=== PATIENT | female | born 1935 | race African-American/Black ===

== ENCOUNTER → 2017-02-13 | Outpatient (CLI) | payer MEDICARE, BC ==
[~2017-02-13] MED LIST: 'TENORMIN50 MG PO; AMBIEN10 M1 PO; APRESOLINE50 MG PO; ARICEPT5 M1 PO; ASPIRIN325 MG PO; ATENOLOL25 MG PO; ATENOLOL50 M1 PO; ATENOLOL50 MG PO; ATIVAN1 MG PO; BACTRIM 400 MG-1 TAB PO; BACTRIM DS 8001 TAB PO; CARAFATE1 GM PO; CIPRO250 MG PO; CIPRO500 MG PO; CITALOPRAM20 MG PO; CLARITIN10 MG PO; CLONIDINE0.1 MG PO; COLACE100 MG PO; COREG6.25 MG PO; COUMADIN5 M1 PO; EFFER-K20 MEQ PO; GLUCOTROL10 MG PO; HEPARIN5000 UNIT/ IV; HYDR25T PO; HYDRALAZINE HC100 MG PO; HYDRALAZINE HYD50 MG PO; HYDRALAZINE100 MG PO; HYDRALAZINE50 MG PO; HYDROCHLOROTH12.5 MG PO; HYDROCHLOROTHIA25 MG PO; KEFLEX500 MG PO; LANTUS SOLOS100 U/M1 SC; LIPITOR20 MG PO; LIPITOR80 MG PO; LOTENSIN40 MG PO; MAGNESIUM OXID400 MG PO; MAPAP325 MG PO; MEDROL DOSEPAK4 MG PO; METFORMIN500 MG PO; METHIMAZOLE10 MG PO; METOPROLOL SR50 MG PO; MICRO K10 MEQ PO; MOM30 ML PO; Micro K10 MEQ PO; NAMENDA10 MG PO; NORCO 325 MG-51 TAB PO; NORVASC10 MG PO; NORVASC5 MG PO; OSCAL/D,OYSTER250 MG PO; PRAD75 PO; PRADAXA150 MG PO; SIMVASTATIN40 MG PO; TENORMIN25 M1 PO; TENORMIN25 MG PO; TRAMADOL50 MG PO; TRAZODO50 MG PO; TRAZODONE50 MG PO; TYLENOL325 M2 PO; TYLENOL650 M1 PO; ULTRAM50 MG PO; VITAMIN D22000 UNIT PO; VITAMIN D33000 UNIT PO; VITAMIN D5000 I2 PO; VITAMIN D50000 I2 PO; ZESTRIL,PRINIVI20 MG PO
== END | disposition home or self-care (01) ==
LOC: US 13:00
DX: E04.2 Nontoxic multinodular goiter (principal)

== ENCOUNTER 2017-03-05 17:29 | Emergency (ER) | payer MEDICARE, BC ==
[~2017-03-05] VITALS: Ht 162.5 cm; Wt 65.8 kg
[2017-03-05 18:19] VITALS: BP 160/85
[2017-03-05 19:08] LABS: BILIRUBIN NEGATIVE (NEGATIVE); BLOOD NEGATIVE (NEGATIVE); CLARITY SL CLOUDY (CLEAR); COLOR YELLOW (YELLOW); GLUCOSE TRACE (NEGATIVE); KETONE NEGATIVE (NEGATIVE); LEUKO ESTERASE 1+ (NEGATIVE); NITRITE NEGATIVE (NEGATIVE); PH 5.5 (5.0-9.0); SPECIFIC GRAVITY 1.025 (1.005-1.030); UROBILINOGEN 0.2 E.U./dl (0.2-1.0)
[2017-03-05 19:15] LABS: BACTERIA 1+
[2017-03-05] MEDS ORDERED: MACROBID100 M1 PO (19:21)
== END 2017-03-05 19:28 | disposition home or self-care (01) ==
LOC: ED 17:29
PROVIDERS: Nurse Practitioner Family
DX: N39.0 Urinary tract infection, site not specified (principal); H92.03 Otalgia, bilateral; R07.9 Chest pain, unspecified; R53.1 Weakness; I48.91 Unspecified atrial fibrillation; F03.90 Unspecified dementia, unspecified severity, without behavioral disturbance, psychotic disturbance, mood disturbance, and anxiety; Z88.0 Allergy status to penicillin; Z88.8 Allergy status to other drugs, medicaments and biological substances; Z88.6 Allergy status to analgesic agent; Z79.899 Other long term (current) drug therapy

== ENCOUNTER 2017-10-22 16:02 | Emergency (ER) | payer MEDICARE, BC ==
[~2017-10-22] VITALS: Ht 162.5 cm; Wt 61.2 kg
[~2017-10-22 16:02] MED LIST changes: +MACROBID100 M1 PO
[2017-10-22 16:16] VITALS: BP 134/68
[2017-10-22 17:04] LABS: BASO % 0.5 % (0.0-1.0); HEMATOCRIT 41.8 % (37.0-47.0); HEMOGLOBIN 13.6 g/dl (12.0-16.0); LYMPH # 1.1 10*3/uL (1.3-4.4); LYMPH % 27.3 % (27.0-41.0); MEAN CELL VOLUME 99.5 fl (81.0-99.0); MEAN CORPUSCULAR HGB 32.4 pg (27.0-31.0); MEAN CORPUSCULAR HGB CONC 32.5 g/dl (33.0-37.0); MEAN PLATELET VOLUME 11.2 fl (9.6-12.3); MONO # 0.4 10*3/uL (0.1-1.0); MONO % 9.8 % (3.0-9.0); NEUT # 2.5 10*3/uL (2.3-7.9); NEUT % 61.2 % (47.0-73.0); PLATELET COUNT AUTOMATED 162 10*3/uL (130-400); RED CELL DISTRI WIDTH 13.9 % (0-14.5); WHITE BLOOD COUNT 4.1 10*3/uL (4.8-10.8)
[2017-10-22 17:13] LABS: INTERNATIONAL NORM RATIO 1.2 (2.0-3.5)
[2017-10-22 17:22] LABS: ALBUMIN 3.3 gm/dl (3.1-4.5); ALKALINE PHOSPHATASE 61 U/L (45-117); BUN 20 mg/dl (7-24); CHLORIDE 107 mmol/L (98-107); CREATININE 0.97 mg/dL (0.55-1.02); POTASSIUM 3.5 mmol/L (3.5-5.1); SGOT/AST 15 IU/L (3-35); SGPT/ALT 16 U/L (12-78); SODIUM 144 mmol/L (136-145); TOTAL PROTEIN 6.8 gm/dL (6.4-8.2)
[2017-10-22 17:24] LABS: TROPONIN I < 0.015 ng/ml (<0.045)
[2017-10-22 18:15] LABS: BILIRUBIN NEGATIVE (NEGATIVE); BLOOD NEGATIVE (NEGATIVE); CLARITY CLEAR (CLEAR); COLOR YELLOW (YELLOW); GLUCOSE NEGATIVE (NEGATIVE); KETONE NEGATIVE (NEGATIVE); LEUKO ESTERASE NEGATIVE (NEGATIVE); NITRITE NEGATIVE (NEGATIVE); PH 6.5 (5.0-9.0); SPECIFIC GRAVITY 1.015 (1.005-1.030)
[2017-10-22 18:30] LABS: BACTERIA TRACE; EPITHELIAL CELLS 40-45; WBC 0-2 wbc/hpf (0-5)
== END 2017-10-22 19:01 | disposition home or self-care (01) ==
LOC: ED 16:02
PROVIDERS: Physician Assistant
DX: E86.0 Dehydration (principal); F03.90 Unspecified dementia, unspecified severity, without behavioral disturbance, psychotic disturbance, mood disturbance, and anxiety; Z98.51 Tubal ligation status; Z90.710 Acquired absence of both cervix and uterus; Z90.49 Acquired absence of other specified parts of digestive tract; Z79.899 Other long term (current) drug therapy; Z88.6 Allergy status to analgesic agent; Z88.0 Allergy status to penicillin; Z88.8 Allergy status to other drugs, medicaments and biological substances

== ENCOUNTER 2017-12-13 12:48 | Inpatient (IN) | payer MEDICARE, BC ==
[~2017-12-13] VITALS: Ht 170.1 cm; Wt 57.3 kg
--- NOTE | ~2017-12-13 | CON ---
[place], [place] REPORT OF CONSULTATION NAME: MARIYA HEATH UNIT #: [id number] ROOM: 409 DOCTOR: MANISH IRWIN MD BIRTHDATE: [birth year] DOS: 12/15/2017 PSYCHIATRIC CONSULT CHIEF COMPLAINT: "I want to go home." HISTORY OF PRESENT ILLNESS: This is an 82-year-old black female who was admitted due to use a syncopal episode. From a psychiatric standpoint, the patient has had dementia for some time. Her daughter, who was present, gave a lot of the history stating that her mom generally does well at home, but will have periods of time when she becomes sleep deprived and then will become increasingly agitated and more labile during the day. These are few and far between. She does note that her mom needs a lot of assistance with ADL maintenance and is very confused and needs to be redirected from time to time, but generally does well at home. She has had poor reactions to previous cholinesterase inhibitors and Namenda, stating that at times they do make her more agitated, but she is willing to try Exelon at this point. She also states that her mom has tried multiple antidepressants and they too have not been beneficial or have caused increased side effects. She does believe that her mom can successfully return home with her son and his girlfriend, stating that they do watch her very closely. PAST MEDICAL HISTORY: Remarkable for degenerative joint disease, atrial fibrillation, leukopenia, frequent falls, CVA, hyperlipidemia, hypertension, hypothyroidism, protein calorie malnutrition, polio, diabetes, vitamin D and vitamin B12 deficiency. SOCIAL HISTORY: The patient does not drink alcohol, use illicit drugs or smoke cigarettes. MENTAL STATUS: The patient is alert and oriented to self, select others and place, not time. Mood does seem to be fairly euthymic. She is relatively bright and engaging. She does speak with slurred words and is somewhat garbled, but understandable. There is no hypomania, aren or psychosis noted. Short-term memory definitely has gaps, otherwise she is intact. DIAGNOSIS: Alzheimer dementia. PLAN: I will go ahead and discontinue her Aricept in lieu of Exelon patch 4.6 mg a day. At this point, the patient can have followup as an outpatient once she is medically stable. [place], [place] REPORT OF CONSULTATION NAME: MARIYA HEATH UNIT #: [id number] ROOM: 409 DOCTOR: MANISH IRWIN MD BIRTHDATE: [birth year] MANISH IRWIN MD CM:CONSTR:REPORT OF CONSULTATION 0903 12/16/17 0025 interface
[~2017-12-13 12:48] MED LIST changes: +GLUCOPHAGE500 M1 PO; -METFORMIN500 MG PO
[2017-12-13 12:50] VITALS: BP 116/93
[2017-12-13 13:21] LABS: BASO % 0.5 % (0.0-1.0); EOS % 0.3 % (1.0-4.0); HEMATOCRIT 44.5 % (37.0-47.0); HEMOGLOBIN 14.4 g/dl (12.0-16.0); LYMPH % 26.3 % (27.0-41.0); MEAN CELL VOLUME 98.9 fl (81.0-99.0); MEAN CORPUSCULAR HGB CONC 32.4 g/dl (33.0-37.0); MEAN PLATELET VOLUME 11.1 fl (9.6-12.3); MONO # 0.4 10*3/uL (0.1-1.0); MONO % 9.5 % (3.0-9.0); NEUT # 2.4 10*3/uL (2.3-7.9); NEUT % 63.1 % (47.0-73.0); PLATELET COUNT AUTOMATED 174 10*3/uL (130-400); RED CELL DISTRI WIDTH 13.8 % (0-14.5); WHITE BLOOD COUNT 3.8 10*3/uL (4.8-10.8)
[2017-12-13 13:31] LABS: ACT PARTIAL THROMBO TIME 37.6 SECONDS (20.8-31.5); INTERNATIONAL NORM RATIO 1.2 (2.0-3.5)
[2017-12-13 13:38] LABS: ALBUMIN 3.5 gm/dl (3.1-4.5); ALKALINE PHOSPHATASE 68 U/L (45-117); BUN 19 mg/dl (7-24); CHLORIDE 108 mmol/L (98-107); CREATININE 0.95 mg/dL (0.55-1.02); POTASSIUM 4.1 mmol/L (3.5-5.1); SGOT/AST 18 IU/L (3-35); SGPT/ALT 16 U/L (12-78); SODIUM 145 mmol/L (136-145); TOTAL PROTEIN 7.4 gm/dL (6.4-8.2)
[2017-12-13 13:39] LABS: TROPONIN I < 0.015 ng/ml (<0.045)
[2017-12-13 14:23] VITALS: BP 140/74
[2017-12-13 14:50] VITALS: BP 155/77
[2017-12-13] MEDS ORDERED: LOPRESSOR25 MG PO (14:53)
[2017-12-13] MEDS ORDERED: VITAMIN D35000 UNIT PO (14:55)
[2017-12-13 16:00] VITALS: BP 154/77
[2017-12-13 17:35] LABS: BILIRUBIN NEGATIVE (NEGATIVE); BLOOD NEGATIVE (NEGATIVE); CLARITY CLEAR (CLEAR); COLOR YELLOW (YELLOW); GLUCOSE NEGATIVE (NEGATIVE); KETONE NEGATIVE (NEGATIVE); LEUKO ESTERASE NEGATIVE (NEGATIVE); NITRITE NEGATIVE (NEGATIVE); PH 7.5 (5.0-9.0)
[2017-12-13 17:47] LABS: WBC 0-2 wbc/hpf (0-5)
[2017-12-13 20:00] VITALS: BP 150/90
[2017-12-14] VITALS: BP 163/87
[2017-12-14 06:33] LABS: BASO % 0.5 % (0.0-1.0); HEMATOCRIT 41.9 % (37.0-47.0); HEMOGLOBIN 13.5 g/dl (12.0-16.0); LYMPH # 1.2 10*3/uL (1.3-4.4); LYMPH % 29.3 % (27.0-41.0); MEAN CELL VOLUME 99.1 fl (81.0-99.0); MEAN CORPUSCULAR HGB 31.9 pg (27.0-31.0); MEAN CORPUSCULAR HGB CONC 32.2 g/dl (33.0-37.0); MONO # 0.5 10*3/uL (0.1-1.0); MONO % 12.8 % (3.0-9.0); NEUT # 2.3 10*3/uL (2.3-7.9); NEUT % 56.4 % (47.0-73.0); PLATELET COUNT AUTOMATED 149 10*3/uL (130-400); RED BLOOD COUNT 4.23 10*6/uL (4.10-5.10); RED CELL DISTRI WIDTH 13.7 % (0-14.5)
[2017-12-14 06:50] LABS: ALBUMIN 3.3 gm/dl (3.1-4.5); CHLORIDE 107 mmol/L (98-107); POTASSIUM 3.6 mmol/L (3.5-5.1); SODIUM 143 mmol/L (136-145)
[2017-12-14 06:58] LABS: ALKALINE PHOSPHATASE 63 U/L (45-117); BUN 14 mg/dl (7-24); CHOLESTEROL 127 mg/dL (<200); CREATININE 0.66 mg/dL (0.55-1.02); FREE T4 1.46 ng/dl (0.76-1.46); HDL CHOLESTEROL 49 mg/dl (40-60); LDL CHOLESTEROL 63 mg/dL (9-159); SGOT/AST 20 IU/L (3-35); SGPT/ALT 14 U/L (12-78); TOTAL PROTEIN 6.7 gm/dL (6.4-8.2); TRIGLYCERIDES 73 mg/dl (<150); VLDL CHOLESTEROL 15 mg/dL (6-40)
[2017-12-14 07:00] LABS: ACT PARTIAL THROMBO TIME 42.9 SECONDS (20.8-31.5); INTERNATIONAL NORM RATIO 1.4 (2.0-3.5)
[2017-12-14 08:00] VITALS: BP 177/78
[2017-12-14 09:32] LABS: VITAMIN D, 25-HYDROXY 85.3 ng/mL (30-100)
[2017-12-14 12:00] VITALS: BP 149/85
[2017-12-14 16:00] VITALS: BP 152/82
[2017-12-14 20:00] VITALS: BP 160/89
[2017-12-15 00:20] VITALS: BP 175/82
[2017-12-15 08:00] VITALS: BP 170/78
[2017-12-15 12:00] VITALS: BP 143/96
[2017-12-15] MEDS ORDERED: RIVASTIGMINE1 EACH T (13:31)
== END 2017-12-15 14:42 | disposition home or self-care (01) | DRG 312 ==
LOC: ED 12:48 → 4E 14:20 → EDHOLD 14:20 → 4E 14:21
PROVIDERS: Emergency Medicine; Family Medicine
DX: R55 Syncope and collapse (principal); E44.0 Moderate protein-calorie malnutrition; E11.65 Type 2 diabetes mellitus with hyperglycemia; E05.90 Thyrotoxicosis, unspecified without thyrotoxic crisis or storm; I48.2 Chronic atrial fibrillation; D72.810 Lymphocytopenia; E04.1 Nontoxic single thyroid nodule; E53.8 Deficiency of other specified B group vitamins; S00.03XA Contusion of scalp, initial encounter; Z68.1 Body mass index [BMI] 19.9 or less, adult; E78.5 Hyperlipidemia, unspecified; E86.0 Dehydration; M43.10 Spondylolisthesis, site unspecified; R26.81 Unsteadiness on feet; W18.39XA Other fall on same level, initial encounter; J30.2 Other seasonal allergic rhinitis; I11.9 Hypertensive heart disease without heart failure; E55.9 Vitamin D deficiency, unspecified; G30.9 Alzheimer's disease, unspecified; F02.80 Dementia in other diseases classified elsewhere, unspecified severity, without behavioral disturbance, psychotic disturbance, mood disturbance, and anxiety; R29.6 Repeated falls; Z79.01 Long term (current) use of anticoagulants; Z88.0 Allergy status to penicillin; Z88.8 Allergy status to other drugs, medicaments and biological substances; Z79.899 Other long term (current) drug therapy; Z86.73 Personal history of transient ischemic attack (TIA), and cerebral infarction without residual deficits; Z87.440 Personal history of urinary (tract) infections; Z90.710 Acquired absence of both cervix and uterus; Z90.49 Acquired absence of other specified parts of digestive tract; Z98.51 Tubal ligation status; Z83.3 Family history of diabetes mellitus; Z82.3 Family history of stroke; Z82.49 Family history of ischemic heart disease and other diseases of the circulatory system; Z98.61 Coronary angioplasty status; Y93.89 Activity, other specified; Y92.89 Other specified places as the place of occurrence of the external cause; Y99.8 Other external cause status; Z86.12 Personal history of poliomyelitis

== ENCOUNTER → 2017-12-28 | Outpatient (CLI) | payer MEDICARE, BC ==
[~2017-12-28] MED LIST changes: +LOPRESSOR25 MG PO; +RIVASTIGMINE1 EACH T; +VITAMIN D35000 UNIT PO
== END | disposition home or self-care (01) ==
LOC: MAMMO 09:30
DX: N64.59 Other signs and symptoms in breast (principal)

== ENCOUNTER 2018-01-11 11:09 | Inpatient (IN) | payer MEDICARE, BC ==
[~2018-01-11] VITALS: Ht 175.3 cm; Wt 61.9 kg
--- NOTE | ~2018-01-11 | PR ---
[place], [place] PROGRESS NOTE [id number] #: [id number] ROOM: 420 DOCTOR: DANIA WILL MD BIRTHDATE: [birth year] DOS: SUBJECTIVE: The patient has been admitted to hospital for possible placement into the [facility]. She also had inverted nipple, and has been seen by Dr. Fischer. She is also waiting for placement into the fci. LABORATORY DATA: Her CBC showed white count 3600, hemoglobin 15.2, hematocrit 46.9. Comprehensive metabolic showed glucose 143. Other values are normal. IMAGING: Chest x-ray is normal. OBJECTIVE: VITAL SIGNS: Blood pressure 139/83, pulse 88, respirations 18, temperature 97.5. HEART: Regular. ABDOMEN: Soft. DANIA WILL MD CM:PNTRANS [id number] DANIA WILL MD 01/14/18 0319 interface
--- NOTE | ~2018-01-11 | CON ---
[place], [place] REPORT OF CONSULTATION NAME: MARIYA HEATH UNIT #: [id number] ROOM: 420 DOCTOR: MANISH IRWIN MD BIRTHDATE: [birth year] DOS: 01/16/2018 PSYCHIATRIC CONSULT CHIEF COMPLAINT: "I don't know when do I get to go home." HISTORY OF PRESENT ILLNESS: This is an 82-year-old black female known to me from a previous admission to the medical floor here at [facility]. She was brought in to the Emergency Room via private vehicle by her daughter for both a change in mental status as well as an inverted right nipple. The patient was to have a mammogram and evaluate for the possibility of breast cancer. When the daughter did come to the patient's home, the patient was covered in urine and was rather foul smelling. The patient has not been eating or drinking like she normally does per the daughter. The patient was admitted to rule out any organic factors, to stabilize on medication, and then to determine the least restrictive environment to which she can return. ALLERGIES: The patient lists allergies to NUBAIN, PENICILLIN, XANAX, NAMENDA, AMBIEN, AND ATIVAN. PAST MEDICAL HISTORY: Remarkable for AFib, cardiomegaly, dementia, CVA, hyperlipidemia, hypertension, hyperthyroidism, vitamin D deficiency, vitamin B12 deficiency, diabetes, and a thyroid nodule. SOCIAL HISTORY: The patient does not drink alcohol, use illicit drugs or smoke tobacco. MENTAL STATUS: She is alert and oriented to person, place, not time. Mood does seem to be fairly euthymic. She is somewhat anxious about going home. There is no hypomania or aren present. There were no overt auditory or visual hallucinations. No delusions, no paranoia. Short term memory is poor and she has significant gaps and she processes slowly. She lacks spontaneity. DIAGNOSIS: Alzheimer dementia. PLAN: I see no criteria for a U admission. At this point in time, the patient can be placed from the medical floor directly to a long-term care facility. [place], [place] REPORT OF CONSULTATION NAME: MARIYA HEATH UNIT #: [id number] ROOM: 420 DOCTOR: MANISH IRWIN MD BIRTHDATE: [birth year] MANISH IRWIN MD CM:CONSTR:REPORT OF CONSULTATION 1026 01/17/18 0009 interface
--- NOTE | ~2018-01-11 | PR ---
[place], [place] PROGRESS NOTE NAME: MARIYA HEATH UNIT #: [id number] ROOM: 420 DOCTOR: HAI FREDERICK MD BIRTHDATE: [birth year] DOS: 01/12/2018 SUBJECTIVE: The patient is an 82-year-old female admitted yesterday for possible placement and also inverted right nipple. The patient was seen by Dr. Fischer. Ultrasound of the breast was ordered yesterday and the report is pending. Dr. Suarez was also consulted for underlying dementia. Her Aricept was increased to 10 mg. Today, the patient was seen at around 12:40 p.m. She is sitting comfortably in the chair. No acute distress. Cyanide Pot Hardener consulted for placement. The reason for the placement is that both daughters are unable to take care of their mother at home. OBJECTIVE: VITAL SIGNS: Blood pressure 169/77, pulse is 84, respiratory rate 18, temperature 97.9. CHEST: Clinically clear to auscultation bilaterally. HEART: S1, S2, regular rate and no murmur, gallop or rub. ABDOMEN: Soft, nontender. EXTREMITIES: No edema. NEUROLOGIC: The patient is alert, but possibly not oriented. Consult report of Dr. Fischer was reviewed as well. He is waiting for ultrasound. LABORATORY DATA: From yesterday were reviewed, though it was thought that patient is dehydrated, but her BUN is 16, creatinine 0.81. Her chest x-ray was done, which showed no acute cardiopulmonary disease. WBC count was 3.6, MCV was 100, MCHC 32.4, glucose was 143. Rest of the labs are normal. ASSESSMENT: At this time: 1. Advanced dementia. Dr. Suarez consulted. 2. Inverted right nipple. Dr. Fischer consulted. 3. Hyperglycemia. 4. Macrocytosis. 5. Unable to take care of her daily activities of living. PLAN OF CARE: 1. Possible care home placement. 2. We will continue to follow up with consultants. 3. Dr. Burgos to see the patient on the weekend. [place], [place] PROGRESS NOTE NAME: MARIYA HEATH UNIT #: [id number] ROOM: 420 DOCTOR: HAI FREDERICK MD BIRTHDATE: [birth year] HAI FREDERICK MD CM:DOUG [phone] HAI FREDERICK MD 01/13/18 0239 interface
--- NOTE | ~2018-01-11 | WRIGHTHP ---
[place], [place] PATIENT HISTORY AND PHYSICAL EXAM NAME: MARIYA HEATH [facility] #: [id number] UNIT #: [id number] ROOM: 420 DOCTOR: HAI FREDERICK MD BIRTHDATE: [birth year] DOS: 01/11/2018 An 82 years old female. CHIEF COMPLAINT: Dehydration, advanced dementia and inverted right breast. HISTORY OF PRESENT ILLNESS: This is an 82-year-old female who was feeling tired and has been tired and weak and not eating and drinking very much, as per the daughter. The patient had strong odor of the urine. The daughter found the patient to be admitted to the assisted on a long-term basis. The patient does have advanced dementia. She is on Aricept 5 mg and as per the daughter, this is not effective. I changed it to 10 mg and I also consulted Dr. Suarez. Dr. Fischer was consulted to get ultrasound of the right breast. I did talk to Dr. Fischer and he will see the patient in the morning. Other than that, the patient is lying comfortably in the bed. She is not in any acute distress. The patient was discussed earlier with Dr. Nieto (ER physician). PAST MEDICAL HISTORY: 1. Alzheimer dementia. 2. Left MCA ischemic stroke. Her speech, reading and writing all skills are affected. 3. Peripheral vascular disease. She had arterial thrombus, status post vascular bypass surgery, left leg, at [facility]. 4. Atrial fibrillation. She is on Pradaxa 150 mg b.i.d. 5. Hypertension. 6. Coronary artery disease status post stent in the coronary artery. 7. She has polio with right cavovarus deformity. 8. Graves disease. She is on methimazole. 9. Vitamin D deficiency and diabetes mellitus type 2. PAST SURGICAL HISTORY: Leg surgery and stent in the coronary. FAMILY HISTORY: She has had seven brothers, four sisters, four sons, two daughters. Brothers and sisters are . Sons and daughters are healthy, otherwise noncontributory. SOCIAL HISTORY: Nonsmoker, nonalcoholic, no illicit drug use. ALLERGIES: PENICILLIN G BENZATHINE. REVIEW OF SYSTEMS: The patient is not in acute distress. A 10-point review of system is negative. The patient denies any dizziness. No double vision. No ear, nose and throat discharge. She does have weakness and no cough, no phlegm, no chest pain. No diarrhea or constipation. No heartburn, no easy bruising, no blood in the urine. She does have strong urine as per the daughter. No muscle pain. Skin is normal. Neurologically, she responds, but is not very aware of the time. She does have difficulty in sleeping. MEDICATIONS: She is on methimazole 5 mg daily, Pradaxa 150 mg twice a day. Then, vitamin D 5000 units daily, Os-Ziyad plus vitamin D 5-100 one tablet by [place], [place] PATIENT HISTORY AND PHYSICAL EXAM NAME: MARIYA HEATH UNIT #: [id number] ROOM: 420 DOCTOR: HAI FREDERICK MD BIRTHDATE: [birth year] mouth daily. Metformin 500 twice a day, vitamin B12 every month, hydralazine 100 mg 1 tablet 3 times a day, metoprolol 25 mg twice a day, potassium 20 mEq daily and lisinopril 20 mg 2 times a day, Lipitor 20 mg daily, Aricept 5 mg daily. PHYSICAL EXAMINATION: GENERAL: The patient is lying comfortably in the bed, in no acute distress. VITAL SIGNS: Her blood pressure was in the 140s as recorded on the monitor. Other vitals, not checked at this point. HEENT: Head normocephalic, atraumatic. Eyes: Pupils equal, round, react to light. EARS, NOSE AND THROAT: No discharge, no exudate. NECK: No JVD, no lymphadenopathy. CHEST: Clinically clear to auscultation bilaterally. HEART: S1, S2, irregularly irregular. LUNGS: Clear to auscultation. BREAST: The patient has right breast inverted nipple. ABDOMEN: Soft, nontender. 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 Deformity of the right knee due to muscle weakness. Has to use walker to walk. Also, crepitus on the left knee noted. NEUROLOGIC: As above, otherwise no new deficit. ASSESSMENT: At this time: 1. Underlying advanced dementia. The patient for placement. 2. Dehydration. We will give IV fluids, check the basic metabolic panel. 3. Strong urine. We will check for urinary tract infection. 4. We will check on the dose of Pradaxa to make sure it is 150 mg b.i.d. and not 75 mg b.i.d. In the office note, it is 150 mg b.i.d. 5. We will continue all home medications. 6. Electric Powerline Examiner consult. 7. Ultrasound of the right breast for inverted breast. Mammogram was negative. We will follow the patient in the morning along with Dr. Fischer. [place], [place] PATIENT HISTORY AND PHYSICAL EXAM NAME: MRAIYA HEATH UNIT #: [id number] ROOM: 420 DOCTOR: HAI FREDERICK MD BIRTHDATE: [birth year] HAI FREDERICK MD CM:HISPHYS:PATIENT HISTORY AND PHYSICAL EXAMINATION 1525 1557 HAI FREDERICK MD 01/11/182 interface
--- NOTE | ~2018-01-11 | PR ---
[place], [place] PROGRESS NOTE [id number] UNIT #: [id number] ROOM: 420 DOCTOR: DANIA WILL MD BIRTHDATE: [birth year] DOS: 01/14/2018 SUBJECTIVE: The patient is having multiple medical problems with advanced age and she is more alert and feeling fairly good and talked to me and she does not have any headache, no chest pain, no difficulty in breathing, no nausea, no vomiting. She is also awaiting placement in the care home. Ultrasound of her breast showed no mass or collection identified with the right breast. Correlation with the mammogram and focused ultrasound as a part of complete mammography work was recommended. Her blood pressure is 164/77, pulse 75, heart is regular, respirations 18, temperature 97.6. Her pulse ox is 95%. DANIA WILL MD CM:PNTRANS [id number] DANIA WILL MD 01/15/18 1551 interface
[2018-01-11 11:14] VITALS: BP 136/80
[2018-01-11 12:42] LABS: BASO % 0.3 % (0.0-1.0); EOS % 0.6 % (1.0-4.0); HEMATOCRIT 46.9 % (37.0-47.0); HEMOGLOBIN 15.2 g/dl (12.0-16.0); LYMPH # 0.9 10*3/uL (1.3-4.4); LYMPH % 25.8 % (27.0-41.0); MEAN CORPUSCULAR HGB 32.4 pg (27.0-31.0); MEAN CORPUSCULAR HGB CONC 32.4 g/dl (33.0-37.0); MEAN PLATELET VOLUME 10.9 fl (9.6-12.3); MONO # 0.3 10*3/uL (0.1-1.0); MONO % 7.5 % (3.0-9.0); NEUT # 2.4 10*3/uL (2.3-7.9); NEUT % 65.5 % (47.0-73.0); PLATELET COUNT AUTOMATED 146 10*3/uL (130-400); RED BLOOD COUNT 4.69 10*6/uL (4.10-5.10); RED CELL DISTRI WIDTH 13.9 % (0-14.5); WHITE BLOOD COUNT 3.6 10*3/uL (4.8-10.8)
[2018-01-11] MEDS ORDERED: ARICEPT5 M1 PO (12:50)
[2018-01-11 12:56] LABS: ALBUMIN 3.5 gm/dl (3.1-4.5); ALKALINE PHOSPHATASE 85 U/L (45-117); BUN 16 mg/dl (7-24); CHLORIDE 107 mmol/L (98-107); CREATININE 0.81 mg/dL (0.55-1.02); POTASSIUM 3.9 mmol/L (3.5-5.1); SGOT/AST 17 IU/L (3-35); SGPT/ALT 20 U/L (12-78); SODIUM 143 mmol/L (136-145); TOTAL PROTEIN 7.5 gm/dL (6.4-8.2)
[2018-01-11 14:00] VITALS: BP 155/69
[2018-01-11] MEDS ORDERED: PRADAXA150 MG PO (15:45)
[2018-01-11 16:27] VITALS: BP 156/92
[2018-01-11 20:00] VITALS: BP 169/77
[2018-01-12] VITALS: BP 168/85
[2018-01-12 08:00] VITALS: BP 189/93
[2018-01-12 12:00] VITALS: BP 178/77
[2018-01-12 15:22] VITALS: BP 168/85
[2018-01-12 16:00] VITALS: BP 137/78
[2018-01-12 20:00] VITALS: BP 110/50; BP 114/64; BP 142/80
[2018-01-13] VITALS: BP 139/83
[2018-01-13 08:00] VITALS: BP 157/90
[2018-01-13 12:00] VITALS: BP 140/56
[2018-01-13 16:00] VITALS: BP 118/53
[2018-01-13 20:00] VITALS: BP 130/68
[2018-01-14] VITALS: BP 145/82
[2018-01-14 08:00] VITALS: BP 164/77
[2018-01-14 12:00] VITALS: BP 150/72
[2018-01-14 16:00] VITALS: BP 168/80
[2018-01-14 20:00] VITALS: BP 128/94
[2018-01-15] VITALS: BP 157/89
[2018-01-15 04:00] VITALS: BP 146/75
[2018-01-15 08:00] VITALS: BP 160/91
[2018-01-15 09:27] LABS: BASO % 0.5 % (0.0-1.0); EOS # 0.1 10*3/uL (0.0-0.4); EOS % 1.3 % (1.0-4.0); HEMATOCRIT 46.8 % (37.0-47.0); HEMOGLOBIN 14.8 g/dl (12.0-16.0); LYMPH # 1.3 10*3/uL (1.3-4.4); LYMPH % 32.1 % (27.0-41.0); MEAN CELL VOLUME 101.3 fl (81.0-99.0); MEAN CORPUSCULAR HGB CONC 31.6 g/dl (33.0-37.0); MEAN PLATELET VOLUME 11.1 fl (9.6-12.3); MONO # 0.3 10*3/uL (0.1-1.0); MONO % 7.9 % (3.0-9.0); NEUT # 2.3 10*3/uL (2.3-7.9); NEUT % 57.9 % (47.0-73.0); PLATELET COUNT AUTOMATED 148 10*3/uL (130-400); RED BLOOD COUNT 4.62 10*6/uL (4.10-5.10); RED CELL DISTRI WIDTH 13.7 % (0-14.5); WHITE BLOOD COUNT 3.9 10*3/uL (4.8-10.8)
[2018-01-15 09:37] LABS: ALBUMIN 3.2 gm/dl (3.1-4.5); ALKALINE PHOSPHATASE 74 U/L (45-117); BUN 16 mg/dl (7-24); CHLORIDE 106 mmol/L (98-107); CREATININE 0.85 mg/dL (0.55-1.02); POTASSIUM 3.6 mmol/L (3.5-5.1); SGOT/AST 15 IU/L (3-35); SGPT/ALT 22 U/L (12-78); SODIUM 141 mmol/L (136-145); TOTAL PROTEIN 7.1 gm/dL (6.4-8.2)
[2018-01-15 12:00] VITALS: BP 137/77
[2018-01-15 16:00] VITALS: BP 142/75
[2018-01-15 20:00] VITALS: BP 155/65
[2018-01-16] VITALS: BP 154/60; BP 164/88
[2018-01-16 08:00] VITALS: BP 153/82
== END 2018-01-16 15:01 | disposition other institution (70) | DRG 600 ==
LOC: ED 11:09 → EDHOLD 12:35 → 4E 12:35
PROVIDERS: Emergency Medicine; Internal Medicine
DX: N64.59 Other signs and symptoms in breast (principal); E44.0 Moderate protein-calorie malnutrition; E11.65 Type 2 diabetes mellitus with hyperglycemia; E11.51 Type 2 diabetes mellitus with diabetic peripheral angiopathy without gangrene; I48.2 Chronic atrial fibrillation; D72.810 Lymphocytopenia; D72.818 Other decreased white blood cell count; D72.819 Decreased white blood cell count, unspecified; F02.81 Dementia in other diseases classified elsewhere, unspecified severity, with behavioral disturbance; G30.9 Alzheimer's disease, unspecified; D75.89 Other specified diseases of blood and blood-forming organs; E86.0 Dehydration; E05.90 Thyrotoxicosis, unspecified without thyrotoxic crisis or storm; I16.0 Hypertensive urgency; R00.0 Tachycardia, unspecified; E53.8 Deficiency of other specified B group vitamins; R29.6 Repeated falls; J30.2 Other seasonal allergic rhinitis; I25.10 Atherosclerotic heart disease of native coronary artery without angina pectoris; I10 Essential (primary) hypertension; E78.5 Hyperlipidemia, unspecified; E55.9 Vitamin D deficiency, unspecified; Z88.0 Allergy status to penicillin; Z88.8 Allergy status to other drugs, medicaments and biological substances; Z79.899 Other long term (current) drug therapy; Z86.73 Personal history of transient ischemic attack (TIA), and cerebral infarction without residual deficits; Z86.12 Personal history of poliomyelitis; Z90.710 Acquired absence of both cervix and uterus; Z90.49 Acquired absence of other specified parts of digestive tract; Z98.51 Tubal ligation status; Z83.3 Family history of diabetes mellitus; Z82.3 Family history of stroke; Z82.49 Family history of ischemic heart disease and other diseases of the circulatory system; Z68.20 Body mass index [BMI] 20.0-20.9, adult

== ENCOUNTER 2018-03-10 17:50 | Inpatient (IN) | payer MEDICARE, BC ==
[~2018-03-10] VITALS: Ht 170.1 cm; Wt 66.8 kg
--- NOTE | ~2018-03-10 | EKG ---
[place], [place] ELECTROCARDIOGRAM REPORT NAME: MARIYA HEATH UNIT #: [id number] ROOM: 523 DOCTOR: NORMAN DRAFT REPORT BIRTHDATE: [birth year] [facility] Test Date: 2018-03-10 Test Time: 20:45:33 Pat Name: MARIYA HEATH Department: 5E Room: [facility] Gender: F [employer] Executive: Woo Salgado : 1935 Requested By: DUARTE MARS DNP Order Number: [id number] Reading MD: Otis Gonzalez MD Measurements Intervals [place] Rate: 75 P: OR: QRS: 41 QRSD: 91 T: 268 QT: 367 QTc: 410 Interpretive Statements Atrial fibrillation Low voltage, extremity leads Nonspecific T abnormalities, lateral leads Electronically Signed On 03-13-2018 4:22:23 PDT by Otis Gonzalez MD CM:EKGRPT:ELECTROCARDIOGRAM REPORT [id number] 0422 DUARTE MARS DNP EPIPHANY DRAFT REPORT DUARTE MARS DNP
--- NOTE | ~2018-03-10 | WRIGHTHP ---
[place], [place] PATIENT HISTORY AND PHYSICAL EXAM NAME: [facility]ATH [facility] #: [id number] UNIT #: [id number] ROOM: 523 DOCTOR: DANIA WILL MD BIRTHDATE: [birth year] DOS: History and physical and discharge summary on the patient for a short stay in the hospital. The patient was brought to hospital on 03/10/2018 to the Emergency Department with feeling of weakness, chest pain and dizziness and from where she was admitted to hospital for possibility checking for any evidence of heart attack. She is somewhat confused and not able to give me details of history, but according to her daughter, the patient was feeling a little bit down and depressed because they were talking about a lot of the family members who have before her and she thought she is dying. ALLERGIES: THE PATIENT IS ALLERGIC TO NUBAIN, PENICILLIN, XANAX, MEMANTINE, ZOLPIDEM, AND LORAZEPAM. MEDICATIONS: The patient is taking following medications at present: Metformin 500 mg twice daily, potassium 2 mEq 3 times daily, Lipitor 20 mg daily, Claritin 10 mg daily, metoprolol 25 mg twice daily, vitamin D 5000 units daily and Pradaxa 150 mg twice daily, lisinopril 20 mg twice daily, methimazole 5 mg daily, calcium carbonate 1 tablet daily, hydralazine 100 mg 3 times daily, donepezil 5 mg at bedtime. PAST SURGICAL HISTORY: The patient has history of tubal ligation, hysterectomy, appendectomy, and cholecystectomy. SOCIAL HISTORY: The patient does not drink, does not smoke. She is , lives with her daughter. She has positive cardiac catheterization. FAMILY HISTORY: History of coronary heart disease, diabetes, and stroke in the family. PHYSICAL EXAMINATION: GENERAL: The patient is conscious, but a little bit confused, not able to give me details of her history. VITAL SIGNS: Her blood pressure on admission is 147/79, pulse 89, respirations 20, temperature 97.1, blood pressure today is 150/99, pulse 85, respirations 29, temperature 97.8. The patient is in atrial fibrillation. HEENT: Unremarkable. No glandular enlargement. NECK: Trachea central. Neck veins are not distended. HEART: Irregular due to atrial fibrillation. LUNGS: Clear. No crepitations or rhonchi. ABDOMEN: Soft. Liver and spleen not palpable. No area of tenderness, no mass felt. EXTREMITIES: No edema of leg. The patient has arthritis of the various joints. DIAGNOSES: Chest pain, hypertension, atrial fibrillation, Alzheimer disease, hyperthyroidism, osteoarthritis, confused mental status and chest pain of noncardiac origin. [place], [place] PATIENT HISTORY AND PHYSICAL EXAM NAME: MARIYA HEATH UNIT #: [id number] ROOM: 523 DOCTOR: DANIA WILL MD BIRTHDATE: [birth year] LABORATORY DATA: Her CBC showed white count 3800, hemoglobin 13.5, hematocrit 42.1. Protime is 12.4. Comprehensive metabolic profile showed glucose 153, chloride 108, other values are normal. C-reactive protein is normal. Chest x-ray does not show any acute process. Troponin level is less than 0.15. EKG shows atrial fibrillation, low voltage, nonspecific ST-segment changes and there is no change in the repeat EKG. HOSPITAL COURSE: The patient is being discharged. She will continue taking her home medications. She does not have any evidence of myocardial infarction. She will be followed up in the office next week. DANIA WILL MD CM:HISPHYS:PATIENT HISTORY AND PHYSICAL EXAMINATION 1516 1610 DANIA WILL MD 03/28/18 0856 interface
--- NOTE | ~2018-03-10 | EKG ---
[place], [place] ELECTROCARDIOGRAM REPORT NAME: MARIYA HEATH UNIT #: [id number] ROOM: 523 DOCTOR: NORMAN DRAFT REPORT BIRTHDATE: [birth year] [facility] Test Date: 2018-03-10 Test Time: 17:56:02 Pat Name: MARIYA HEATH Department: 5E Room: [facility] Gender: F Solutions Consultant: ESPERANZA : 1935 Requested By: DUARTE MARS DNP Order Number: [id number] Reading MD: Otis Gonzalez MD Measurements Intervals [place] Rate: 77 P: AK: QRS: 21 QRSD: 93 T: -89 QT: 379 QTc: 429 Interpretive Statements Atrial fibrillation Borderline low voltage, extremity leads Consider left ventricular hypertrophy Electronically Signed On 03-13-2018 4:22:12 PDT by Otis Gonzalez MD CM:EKGRPT:ELECTROCARDIOGRAM REPORT [id number] 0422 DUARTE MARS DNP EPIPHANY DRAFT REPORT DUARTE MARS DNP
[2018-03-10 17:53] VITALS: BP 147/79
[2018-03-10 18:29] LABS: BASO % 0.5 % (0.0-1.0); EOS # 0.1 10*3/uL (0.0-0.4); EOS % 1.6 % (1.0-4.0); HEMATOCRIT 42.1 % (37.0-47.0); HEMOGLOBIN 13.5 g/dl (12.0-16.0); LYMPH # 1.3 10*3/uL (1.3-4.4); LYMPH % 34.6 % (27.0-41.0); MEAN CELL VOLUME 100.5 fl (81.0-99.0); MEAN CORPUSCULAR HGB 32.2 pg (27.0-31.0); MEAN CORPUSCULAR HGB CONC 32.1 g/dl (33.0-37.0); MEAN PLATELET VOLUME 10.9 fl (9.6-12.3); MONO # 0.4 10*3/uL (0.1-1.0); MONO % 10.7 % (3.0-9.0); NEUT % 52.3 % (47.0-73.0); PLATELET COUNT AUTOMATED 150 10*3/uL (130-400); RED BLOOD COUNT 4.19 10*6/uL (4.10-5.10); RED CELL DISTRI WIDTH 13.6 % (0-14.5); WHITE BLOOD COUNT 3.8 10*3/uL (4.8-10.8)
[2018-03-10 18:40] LABS: ACT PARTIAL THROMBO TIME 34.3 SECONDS (20.8-31.5); INTERNATIONAL NORM RATIO 1.1 (2.0-3.5)
[2018-03-10 18:45] LABS: ALBUMIN 3.1 gm/dl (3.1-4.5); ALKALINE PHOSPHATASE 66 U/L (45-117); BUN 16 mg/dl (7-24); CHLORIDE 108 mmol/L (98-107); CREATININE 0.83 mg/dL (0.55-1.02); POTASSIUM 3.8 mmol/L (3.5-5.1); SGOT/AST 18 IU/L (3-35); SGPT/ALT 21 U/L (12-78); SODIUM 142 mmol/L (136-145); TOTAL PROTEIN 6.7 gm/dL (6.4-8.2)
[2018-03-10 18:48] LABS: TROPONIN I < 0.015 ng/ml (<0.045)
[2018-03-10 18:52] VITALS: BP 136/70
[2018-03-10 20:00] VITALS: BP 136/70
[2018-03-10 20:30] VITALS: BP 131/65
[2018-03-11] VITALS: BP 140/77
[2018-03-11 08:00] VITALS: BP 170/90
[2018-03-11 12:00] VITALS: BP 150/99
== END 2018-03-11 15:39 | disposition home or self-care (01) | DRG 206 ==
LOC: ED 17:50 → EDHOLD 19:09 → 5E 19:57
PROVIDERS: Nurse Practitioner Family
DX: M94.0 Chondrocostal junction syndrome [Tietze] (principal); F41.9 Anxiety disorder, unspecified; R07.89 Other chest pain; I25.2 Old myocardial infarction; I48.91 Unspecified atrial fibrillation; G30.9 Alzheimer's disease, unspecified; E05.00 Thyrotoxicosis with diffuse goiter without thyrotoxic crisis or storm; F02.80 Dementia in other diseases classified elsewhere, unspecified severity, without behavioral disturbance, psychotic disturbance, mood disturbance, and anxiety; I10 Essential (primary) hypertension; M19.90 Unspecified osteoarthritis, unspecified site; Z86.73 Personal history of transient ischemic attack (TIA), and cerebral infarction without residual deficits; Z95.5 Presence of coronary angioplasty implant and graft; Z88.0 Allergy status to penicillin; Z88.8 Allergy status to other drugs, medicaments and biological substances; Z90.49 Acquired absence of other specified parts of digestive tract; Z90.710 Acquired absence of both cervix and uterus; Z98.51 Tubal ligation status; Z82.3 Family history of stroke; Z83.3 Family history of diabetes mellitus; Z82.49 Family history of ischemic heart disease and other diseases of the circulatory system; Z79.899 Other long term (current) drug therapy; Z79.84 Long term (current) use of oral hypoglycemic drugs

== ENCOUNTER 2018-05-18 16:22 | Emergency (ER) | payer MEDICARE, BC ==
[~2018-05-18] VITALS: Wt 64.0 kg
[2018-05-18 16:54] VITALS: BP 162/78
[2018-05-18 17:17] LABS: BASO % 0.3 % (0.0-1.0); EOS % 0.2 % (1.0-4.0); HEMATOCRIT 42.5 % (37.0-47.0); HEMOGLOBIN 13.8 g/dl (12.0-16.0); LYMPH # 0.9 10*3/uL (1.3-4.4); LYMPH % 13.8 % (27.0-41.0); MEAN CELL VOLUME 100.2 fl (81.0-99.0); MEAN CORPUSCULAR HGB 32.5 pg (27.0-31.0); MEAN CORPUSCULAR HGB CONC 32.5 g/dl (33.0-37.0); MEAN PLATELET VOLUME 10.7 fl (9.6-12.3); MONO # 0.5 10*3/uL (0.1-1.0); MONO % 6.8 % (3.0-9.0); NEUT # 5.2 10*3/uL (2.3-7.9); NEUT % 78.6 % (47.0-73.0); PLATELET COUNT AUTOMATED 161 10*3/uL (130-400); RED BLOOD COUNT 4.24 10*6/uL (4.10-5.10); RED CELL DISTRI WIDTH 13.6 % (0-14.5); WHITE BLOOD COUNT 6.7 10*3/uL (4.8-10.8)
[2018-05-18 17:28] LABS: ACT PARTIAL THROMBO TIME 33.5 SECONDS (20.8-31.5); INTERNATIONAL NORM RATIO 1.2 (2.0-3.5)
[2018-05-18 17:34] LABS: ALBUMIN 3.4 gm/dl (3.1-4.5); ALKALINE PHOSPHATASE 64 U/L (45-117); BUN 16 mg/dl (7-24); CHLORIDE 104 mmol/L (98-107); CREATININE 0.88 mg/dL (0.55-1.02); POTASSIUM 3.8 mmol/L (3.5-5.1); SGOT/AST 21 IU/L (3-35); SGPT/ALT 25 U/L (12-78); SODIUM 141 mmol/L (136-145); TOTAL PROTEIN 7.4 gm/dL (6.4-8.2)
[2018-05-18] MEDS ORDERED: DELTASONE20 M1 PO (18:09)
== END 2018-05-18 18:30 | disposition home or self-care (01) ==
LOC: ED 16:22
PROVIDERS: Physician Assistant
DX: M25.532 Pain in left wrist (principal); R79.1 Abnormal coagulation profile; Z88.0 Allergy status to penicillin; Z88.6 Allergy status to analgesic agent; Z88.8 Allergy status to other drugs, medicaments and biological substances; Z79.899 Other long term (current) drug therapy

== ENCOUNTER → 2018-12-10 | Outpatient (CLI) | payer MEDICARE, BC ==
[~2018-12-10] MED LIST changes: +APRESOLINE25 MG PO; +DELTASONE20 M1 PO; +METHIMAZOLE5 M1 PO; -ZESTRIL,PRINIVI20 MG PO; +ZESTRIL20 MG PO
[2018-12-10 17:07] LABS: BASO % 0.7 % (0.0-1.0); HEMATOCRIT 39.4 % (37.0-47.0); HEMOGLOBIN 12.8 g/dl (12.0-16.0); LYMPH # 1.3 10*3/uL (1.3-4.4); LYMPH % 32.1 % (27.0-41.0); MEAN CELL VOLUME 102.9 fl (81.0-99.0); MEAN CORPUSCULAR HGB 33.4 pg (27.0-31.0); MEAN CORPUSCULAR HGB CONC 32.5 g/dl (33.0-37.0); MEAN PLATELET VOLUME 11.3 fl (9.6-12.3); MONO # 0.4 10*3/uL (0.1-1.0); MONO % 9.2 % (3.0-9.0); NEUT # 2.4 10*3/uL (2.3-7.9); NEUT % 57.8 % (47.0-73.0); PLATELET COUNT AUTOMATED 237 10*3/uL (130-400); RED BLOOD COUNT 3.83 10*6/uL (4.10-5.10); RED CELL DISTRI WIDTH 14.9 % (0-14.5); WHITE BLOOD COUNT 4.1 10*3/uL (4.8-10.8)
[2018-12-10 17:33] LABS: BUN 14 mg/dl (7-24); CHLORIDE 101 mmol/L (98-107); CREATININE 0.92 mg/dL (0.55-1.02); POTASSIUM 3.2 mmol/L (3.5-5.1); SODIUM 141 mmol/L (136-145)
== END | disposition home or self-care (01) ==
LOC: LAB 15:30
DX: I73.9 Peripheral vascular disease, unspecified (principal); Z79.01 Long term (current) use of anticoagulants

== ENCOUNTER 2019-05-04 18:20 | Inpatient (IN) | payer MEDICARE, BC ==
[~2019-05-04] VITALS: Ht 162.5 cm; Wt 48.7 kg
--- NOTE | ~2019-05-04 | EKG ---
[place], [place] ELECTROCARDIOGRAM REPORT NAME: MARIYA HEATH UNIT #: [id number] ROOM: 419 DOCTOR: EPIPHANY DRAFT REPORT BIRTHDATE: [birth year] [facility] Test Date: 2019-05-08 Test Time: 00:16:26 Pat Name: MARIYA HEATH Department: Room: 419 1 Gender: F Women'S Soccer Coach: Kandice Hoffman : 1935 Requested By: ADELAIDA GIRON Order Number: [id number] Reading MD: Ora Gonzalez MD Measurements Intervals [place] Rate: 64 P: DC: QRS: -17 QRSD: 94 T: 268 QT: 398 QTc: 411 Interpretive Statements Atrial fibrillation Borderline left axis deviation Anterior infarct, old Nonspecific T abnormalities, lateral leads Compared to ECG 05/04/2019 19:03:33 T-wave abnormality now present Left ventricular hypertrophy no longer present Myocardial infarct finding still present Electronically Signed On 05-10-2019 13:39:40 PDT by Ora Gonzalez MD CM:EKGRPT:ELECTROCARDIOGRAM REPORT 0016 1339 ADELAIDA ADAMS DRAFT REPORT ADELAIDA GIRON DO
--- NOTE | ~2019-05-04 | CON ---
[place], [place] REPORT OF CONSULTATION [id number] #: [id number] ROOM: 419 DOCTOR: AGNIESZKA GONZALEZ MD BIRTHDATE: [birth year] DOS: 05/06/2019 HISTORY OF PRESENT ILLNESS: This is an 84-year-old woman with a history of severe dementia, who also had a major stroke, carries a diagnosis of heart failure. She has chronic atrial fibrillation and has had a rapid heart rate previously, hypertensive urgency, hematuria, hypokalemia, but she has never had a heart attack or COPD. She has had pneumonia and has generalized weakness. She lives at home, and there is a caregiver. She was said to be becoming more and more weak over the last 3 days and had been eating and drinking poorly. She was brought to the Emergency Department and was admitted to the ER. She was found to be in atrial fibrillation with very rapid ventricular rate. HOME MEDICATIONS: Include atorvastatin, vitamin, calcium, cholecalciferol, dabigatran 150 mg b.i.d., Aricept 5 mg daily, hydralazine 25 mg t.i.d., lisinopril 20 mg b.i.d., metformin 250 mg b.i.d., methimazole 2.5 mg daily, metformin 25 mg q. 12 h. and sodium bicarbonate with Effer-K 20 mEq t.i.d. PHYSICAL EXAMINATION: GENERAL: This is a patient who is alert. She is looking around, she does verbalize, but does not seem to be meaningful. She is had diaphoretic. VITAL SIGNS: Temperature is normal. Pulse is 80 irregular, blood pressure 110/76. NECK: JVP is normal. AJR is negative. There is no carotid bruit. HEART: There is no cardiomegaly, no murmurs are present. EXTREMITIES: There is no edema in the lower extremities. RESPIRATORY: Breath sounds are diminished, but I did not appreciate any kind of adventitious sound. ABDOMEN: Midline. DIAGNOSTIC STUDIES: First ECG demonstrated atrial fibrillation with a ventricular rate of 147 beats per minute and likely LVH and ST-T wave changes in lateral leads. Monitor now shows atrial fibrillation with a ventricular rate in the 80s. Currently, she is on metoprolol 25 mg b.i.d., which was started today. She had an echocardiogram a couple of months ago, which showed normal LV systolic function and no significant valvular abnormalities. IMPRESSION: 1. Atrial fibrillation with rapid ventricular rate, which is being sufficiently tamed with a small dose of metoprolol tartrate. 2. There is no clinical or radiographic evidence of heart failure. 3. Dementia and cerebrovascular accident is also a problem with her. RECOMMENDATIONS: Continue with anticoagulant and metoprolol, adjust the dose to control ventricular rate. [place], [place] REPORT OF CONSULTATION NAME: MARIYA HEATH UNIT #: [id number] ROOM: 419 DOCTOR: AGNIESZKA GONZALEZ MD BIRTHDATE: [birth year] AGNIESZKA GONZALEZ MD CM:CONSTR:REPORT OF CONSULTATION 2115 05/24/19 0738 interface
--- NOTE | ~2019-05-04 | CON ---
[place], [place] REPORT OF CONSULTATION NAME: MARIYA HEATH UNIT #: [id number] ROOM: 419 DOCTOR: FLORENTIN ORTIZ MD,ORAL BIRTHDATE: [birth year] DOS: 05/09/2019 PULMONARY CONSULTATION, EVALUATION AND MANAGEMENT CONSULTATION REQUESTED BY: Dr. Cory Samuels. REASON FOR CONSULTATION: Assess the patient for possibility of acute pneumonia. HISTORY OF PRESENT ILLNESS: This is an 84-year-old white female patient who has been brought to the hospital by the family members via private vehicle. The patient was admitted to the hospital on 05/04/2019. She has been treated for presumed pneumonia involving the left lung for pleural effusion. I was asked the patient ____ for pneumonia. The patient has been noted history of advanced dementia, unable to give any history. All the history contained documentation with medical record documentations, which were done by the primary care attending and other physicians' notes and the nurse's notes. The patient has been noted comfortable at this time, resting on the bed, was not noted any coughing or shortness of breath or any distress. REVIEW OF SYSTEMS: Could not be completed. The patient is unable to give any history due to history of advanced dementia. PAST MEDICAL HISTORY: Reported with: 1. Atrial fibrillation, which is noted currently with rapid ventricular response, which resolved. 2. History of essential hypertension. 3. Chronic leukopenia. 4. Frequent falls. 5. Advanced dementia. 6. Osteoarthritis. 7. Vitamin D deficiency. 8. Thyroid nodule. 9. Allergic rhinitis. 10. Type 2 diabetes mellitus. 11. History reported for congestive heart failure with reduced ejection fraction or preserved ejection fraction, diagnosis was unknown. 12. Multiple recurrent deep venous thrombosis, left lower extremity. 13. Recurrent urinary tract infection. 14. History of past CVA. 15. History of coronary artery disease. 16. History of Graves' disease. SOCIAL HISTORY: The patient lives at home with a 24-hour caregiver. Has not been reported any tobacco, alcohol or any illicit drug use. SURGICAL HISTORY: Reported: 1. Cardiac catheterization. 2. Cholecystectomy. 3. Appendectomy. 4. Tubal ligation. [place], [place] REPORT OF CONSULTATION NAME: MARIYA HEATH UNIT #: [id number] ROOM: 419 DOCTOR: FLORENTIN ORTIZ MD,ORAL BIRTHDATE: [birth year] 5. Cardiac catheterization with coronary artery stents insertion. FAMILY HISTORY: Reported for CVA, coronary artery disease, diabetes, bronchial asthma, and epilepsy. MEDICATIONS: Which have been administered at this time were noted as metoprolol tartrate, amlodipine, benazepril, Lipitor, potassium chloride, Metamucil, lisinopril, Pradaxa, vitamin D, calcium carbonate, metformin, hydralazine, Levaquin, and Rocephin. DRUG ALLERGIES: Reported as: 1. PENICILLIN. 2. ATIVAN. 3. XANAX. 4. ZOLPIDEM. 5. NUBAIN. 6. NAMENDA. PHYSICAL EXAMINATION: GENERAL: This is an 84-year-old female patient who has been currently noted to be awake and alert without any distress this morning of assessment, resting comfortably in the bed. Height 5 feet 4 inches, weight 107 pounds, BMI 18.4. VITAL SIGNS: For the patient, which are recorded shows temperature noted normal, respiratory rate 18-16, heart rate of 118 this morning to 78, blood pressure 164/80-150/64. The pulse oxygen saturation recorded as 96% saturation, 90% saturation at rest or room air. HEENT: Head was atraumatic. Age-related changes. NECK: Supple. CARDIOVASCULAR: S1, S2 audible. LUNGS: Noted clear to wheeze. Clear on auscultation bilaterally. ABDOMEN: Soft, nontender. Bowel sounds present. EXTREMITIES: The patient with chronic edema of the left lower extremity. MUSCULOSKELETAL: Without acute deformities. CENTRAL NERVOUS SYSTEM: At this time, unable to assess. LABORATORY DATA: CBC was done on 05/04/2019. WBC count normal, hemoglobin 11.9, platelet count normal. Lactic acid 1.2. PT, PTT on 05/02/2019, INR was 1.4. CMP noted normal BUN and creatinine. CT scan of the head that was done on 05/04/2019, small vessel ischemic changes without any acute abnormalities. The chest x-ray that was done on 05/04/2019, 1 view, noted as area of atelectasis, and infiltration in the left lower lobe. CBC, 05/06/2019, WBC 3.8. CBC that was done this morning, WBC count 2.8, hemoglobin of 12.3. Hematocrit and platelet count were normal. The BNP noted normal this morning as well. Chest x-ray this morning was done yesterday 1-view does not show any acute pulmonary infiltration. Small pleural fluid was noted. IMPRESSION: 1. Presumed acute pneumonia associated with pleural fluid seemed to be resolving clinically and radiologically. 2. History of dementia, unable to get history from the patient. [place], [place] REPORT OF CONSULTATION NAME: MARIYA HEATH UNIT #: [id number] ROOM: 419 DOCTOR: FLORENTIN ORTIZ MD,ORAL BIRTHDATE: [birth year] 3. History of dementia, which has been noted chronic with a stroke and mostly bedbound status. 4. History of hypothyroidism and atrial fibrillation and others noted. The patient was admitted to the hospital noted with atrial fibrillation, rapid ventricular response, which seemed to be resolved. PLAN OF MANAGEMENT: Oral antibiotic could be administered. The patient could be discharged home, would not require any use of oxygen at the present time, noted normal oxygen saturation on room air. Other therapy, plan of management, other care plan, treatment and therapy to be continued. Usual care, other plan of management, plan of care therapies of medical management and supportive care. Usual medical management previously ordered will be continued. Other therapy, plan of management. The discharge planning and recommendations were conveyed to the primary care physician. ORAL LERMA MD CM:CONSTR:REPORT OF CONSULTATION 1230 05/10/19 0043 interface
--- NOTE | ~2019-05-04 | EKG ---
[place], [place] ELECTROCARDIOGRAM REPORT NAME: MARIYA HEATH UNIT #: [id number] ROOM: 419 DOCTOR: NORMAN DRAFT REPORT BIRTHDATE: [birth year] [facility] Test Date: 2019-05-04 Test Time: 19:03:33 Pat Name: MARIYA HEATH Department: ER Room: 419 Gender: F Radiological Technician: EKG.PA : 1935 Requested By: JERSON MCKINLEY PA-C Order Number: [id number] Reading MD: Liz Nuñez MD Measurements Intervals [place] Rate: 147 P: [place]: QRS: -35 QRSD: 88 T: 242 QT: 300 QTc: 470 Interpretive Statements Atrial fibrillation with rapid V-rate LVH with secondary repolarization abnormality Probable anterior infarct, age indeterminate Compared to ECG 02/28/2019 02:44:40 Myocardial infarct finding now present Q waves no longer present Possible ischemia no longer present Electronically Signed On 05-06-2019 13:12:39 PDT by Liz Nuñez MD CM:EKGRPT:ELECTROCARDIOGRAM REPORT [id number] JERSON MCKINLEY PA-C EPIPHANY DRAFT REPORT JERSON MCKINLEY PA-C
--- NOTE | ~2019-05-04 | PR ---
[place], [place] PROGRESS NOTE NAME: MARIYA HEATH UNIT #: [id number] ROOM: 419 DOCTOR: JUAN ALBERTO CORDON MD BIRTHDATE: [birth year] DOS: 05/07/2019 SUBJECTIVE: An 84-year-old, refer to the detailed consultation done by Dr. Gonzalez. The patient appears to be comfortable at this moment, nonverbal, intermittent confusion, history of dementia. She is alert and responsive. Most of the information is obtained from the chart, does not look to be in acute distress. OBJECTIVE: VITAL SIGNS: Blood pressure today is 140/70, sinus rhythm, heart rate is 99. He is afebrile. REVIEW OF SYSTEMS: Limited. Alert, awake, not in acute distress. PHYSICAL EXAMINATION: HEENT: Unremarkable. NECK: Supple, no JVD. LUNGS: Normal breath sounds. HEART: Sounds are regular. ABDOMEN: Soft. EXTREMITIES: No clubbing. NEUROLOGIC: Very poor historian with intermittent confusion. LABORATORY DATA: Sodium 144, potassium 3.7 and creatinine is normal. Blood cultures are all pending. The patient had a malleolar wound, which is healing, Podiatry is following that. IMPRESSION: The patient was admitted with pneumonia, urinary tract infection. No obvious septicemia, history of congestive heart failure, hematuria, hypertension. RECOMMENDATIONS: Continue the present medications. Get an echocardiogram if not done in 6 months, Dr. Gonzalez has seen the patient yesterday. Strict I's and O's and we will follow up. [place], [place] PROGRESS NOTE NAME: MARIYA HEATH UNIT #: [id number] ROOM: 419 DOCTOR: JUAN ALBERTO CORDON MD BIRTHDATE: [birth year] JUAN ALBERTO CORDON MD CM:PNTRANS [id number] JUAN ALBERTO CORDON MD 05/14/19 0923 interface
[2019-05-04 18:25] VITALS: BP 121/84
[2019-05-04 19:11] LABS: BASO % 0.4 % (0.0-1.0); EOS # 0.1 10*3/uL (0.0-0.4); EOS % 1.5 % (1.0-4.0); HEMATOCRIT 37.6 % (37.0-47.0); HEMOGLOBIN 11.9 g/dl (12.0-16.0); LYMPH # 1.1 10*3/uL (1.3-4.4); LYMPH % 20.3 % (27.0-41.0); MEAN CELL VOLUME 98.2 fl (81.0-99.0); MEAN CORPUSCULAR HGB 31.1 pg (27.0-31.0); MEAN CORPUSCULAR HGB CONC 31.6 g/dl (33.0-37.0); MEAN PLATELET VOLUME 10.2 fl (9.6-12.3); MONO # 0.4 10*3/uL (0.1-1.0); MONO % 7.5 % (3.0-9.0); NEUT # 3.7 10*3/uL (2.3-7.9); NEUT % 70.1 % (47.0-73.0); PLATELET COUNT AUTOMATED 245 10*3/uL (130-400); RED BLOOD COUNT 3.83 10*6/uL (4.10-5.10); RED CELL DISTRI WIDTH 14.8 % (0-14.5); WHITE BLOOD COUNT 5.2 10*3/uL (4.8-10.8)
[2019-05-04 19:21] LABS: ACT PARTIAL THROMBO TIME 51.6 SECONDS (20.0-32.1); INTERNATIONAL NORM RATIO 1.4 (2.0-3.5)
[2019-05-04 19:28] LABS: ALBUMIN 2.5 gm/dl (3.1-4.5); ALKALINE PHOSPHATASE 60 U/L (45-117); BUN 16 mg/dl (7-24); CHLORIDE 111 mmol/L (98-107); CREATININE 0.75 mg/dL (0.55-1.02); LIPASE 76 U/L (73-393); POTASSIUM 3.8 mmol/L (3.5-5.1); SGOT/AST 12 IU/L (3-35); SGPT/ALT 9 U/L (12-78); SODIUM 144 mmol/L (136-145); TOTAL PROTEIN 6.3 gm/dL (6.4-8.2)
[2019-05-04 19:29] LABS: TROPONIN I 0.045 ng/ml (<0.045)
[2019-05-04 19:30] VITALS: BP 142/90
--- NOTE | 2019-05-04 19:32 | NUR ---
PT POSITIONED FOR COMFORT,FAMILY @ BEDSIDE,SAFETY PRECAUTIONS INTACT AND CALL LIGHT WITHIN REACH.
[2019-05-04 19:34] LABS: BILIRUBIN NEGATIVE (NEGATIVE); BLOOD NEGATIVE (NEGATIVE); CLARITY SL CLOUDY (CLEAR); COLOR YELLOW (YELLOW); GLUCOSE NEGATIVE (NEGATIVE); KETONE NEGATIVE (NEGATIVE); LEUKO ESTERASE 3+ (NEGATIVE); NITRITE POSITIVE (NEGATIVE); PH 8.5 (5.0-9.0)
[2019-05-04 19:46] LABS: BACTERIA 3+; MUCOUS 2+; WBC 21-30 wbc/hpf (0-5)
[2019-05-04 20:30] VITALS: BP 140/92
[2019-05-04 22:10] VITALS: BP 141/96
--- NOTE | 2019-05-04 22:10 | NUR ---
A 84, admitted to , under the services of HAI James MD with a diagnosis of UTI,HOSPITAL AQUIRED PNEUMONIA. Chief complaint is CHANGE IN MENTAL STATUS. Patient arrived via stretcher from ER. Monitor applied. Initial assessment completed. Vital signs taken and recorded. HAI JAMES MD notified of admission to the unit. Orders received. See assessment for past medical history, medications and allergies. Patient and/or family oriented to unit. [facility] visitation policy reviewed. Clothing/patient valuable form completed. HUBERT FARIAS
--- NOTE | 2019-05-05 | NUR ---
RESTING IN BED; AWAKE & ALERT. REPOSITIONED FOR COMFORT BUT IS SOMEWHAT COMBATIVE & AGITATED AT THIS TIME. BED IN LOW LOCKED POSITION & BED ALARM ON. CALL LIGHT WITHIN REACH. WILL CONTINUE TO MONITOR.
--- NOTE | 2019-05-05 06:00 | NUR ---
RESTING IN BED WITH EYES OPEN. IV FLUIDS CONTINUE TO INFUSE WITHOUT DIFFICULTY. NO DISTRESS NOTED.
[2019-05-05 08:00] VITALS: BP 171/91
[2019-05-05 12:00] VITALS: BP 137/77; BP 172/90
[2019-05-05 16:00] VITALS: BP 150/65
--- NOTE | 2019-05-05 16:00 | NUR ---
DR. FREDERICK NOTIFIED OF HR 140'S.
[2019-05-05 19:40] VITALS: BP 154/86
--- NOTE | 2019-05-05 19:53 | NUR ---
SCHEDULED 2200 MEDS GIVEN AT THIS TIME PATIENT IS AWAKE AND WILLING TO TAKE MEDS. HR 120S-130S PER CM. CARDIZEM GTT INFUSING AT 5 MG/HR PER ORDER. PATIENT TOOK MEDS WELL CRUSHED IN APPLESAUCE. DAUGHTER AT BEDSIDE. WILL MONITOR.
--- NOTE | 2019-05-05 22:21 | NUR ---
NOTIFIED OF PATIENT'S C/O PAIN IN BACK & NO PAIN MEDICATION ORDERED. NEW ORDER RECEIVED FOR 650 MG TYLENOL Q8H PRN. ALSO DISCUSSED CARDIZEM GTT CURRENTLY RUNNING @ 5 MG/HR. AWARE HR WAS IN 140S WHEN THIS RN CAME ON. PT ABLE TO TAKE 2200 ORAL MEDICATION (INCLUDING METOPROLOL & LISINOPRIL). DISCUSSED CURRENT HR BETWEEN 70-80 PER CM. PER , STOP CARDIZEM GTT AT THIS TIME. RESTART CARDIZEM GTT AT 5 MG/HR IF HR >110.
[2019-05-05 22:30] VITALS: BP 140/71
[2019-05-06] VITALS: BP 159/70
[2019-05-06 05:15] VITALS: BP 180/82
--- NOTE | 2019-05-06 05:29 | NUR ---
PT BP 180/82 MANUALLY. PATIENT JUST WOKE UP & WAS BEING TURNED BY PAs. PT C/O PAIN IN BACK. SCHEDULED PO APRESOLINE GIVEN, WELL PO TYLENOL FOR PAIN. WILL MONITOR EFFECTIVENESS. CALL LIGHT IN REACH. BED ALARM INTACT.
[2019-05-06 06:23] LABS: BUN 15 mg/dl (7-24); CHLORIDE 114 mmol/L (98-107); CREATININE 0.63 mg/dL (0.55-1.02); POTASSIUM 3.7 mmol/L (3.5-5.1); SODIUM 144 mmol/L (136-145)
[2019-05-06 06:24] LABS: BASO % 0.5 % (0.0-1.0); EOS % 1.1 % (1.0-4.0); HEMATOCRIT 39.2 % (37.0-47.0); LYMPH % 26.3 % (27.0-41.0); MEAN CELL VOLUME 99.7 fl (81.0-99.0); MEAN CORPUSCULAR HGB 30.5 pg (27.0-31.0); MEAN CORPUSCULAR HGB CONC 30.6 g/dl (33.0-37.0); MEAN PLATELET VOLUME 10.5 fl (9.6-12.3); MONO # 0.3 10*3/uL (0.1-1.0); MONO % 7.4 % (3.0-9.0); NEUT # 2.4 10*3/uL (2.3-7.9); NEUT % 64.4 % (47.0-73.0); PLATELET COUNT AUTOMATED 199 10*3/uL (130-400); RED BLOOD COUNT 3.93 10*6/uL (4.10-5.10); RED CELL DISTRI WIDTH 14.6 % (0-14.5); WHITE BLOOD COUNT 3.8 10*3/uL (4.8-10.8)
[2019-05-06 08:00] VITALS: BP 160/50
--- NOTE | 2019-05-06 09:19 | NUR ---
MARIYA HEATH [id number] Please refer to the physician's history and physical for past medical history, comorbid conditions, and allergies. Diagnosis: UTI HOSPITAL-ACQUIRED PNEUMONIA GENERALIZED Franky Score: 10,VERY HIGH RISK WOUND DESCRIPTIONS: Wound Number: 1 Location of the wound: right upper thigh posterior Type of wound: stage 2 Thickness: Partial Size: 1.7cm x 1.9cm x 0.1cm Tunneling: none Undermining: none Sinus Tract: none Presence of Exudate: Serous Amount: Light Color: Red Odor: None Periwound Skin Appearance: Scar Wound edges: approximated Pain (associated with wound): none at time of assessment How does patient state this happened? pt unable to state how this happened Wound Number: 2 right buttocks no open areas noted at time of assessment. No drainage noted at time of assessment. Wound Number: 3 Location of the wound: coccyx Type of wound: stage 2 Thickness: Partial Size: 2.5cm x 3.0cm x 0.1cm Tunneling: none Undermining: none Sinus Tract: none Presence of Exudate: Serous Amount: Light Color: Red Odor: None Periwound Skin Appearance: Scar Wound edges: approximated Pain (associated with wound): none at time of assessment How does patient state this happened? pt unable to state how this happened Wound Number: 4 Location of the wound: left lateral aspect of ankle Type of wound: unstageable Thickness: Full Size: 0.5cm x 0.3cm x <0.1cm Tunneling: none Undermining: none Sinus Tract: none Presence of Exudate: none Amount: None Color: red, yellow Odor: None Periwound Skin Appearance: Normal Wound edges: approximated Pain (associated with wound): none at time of assessment How does patient state this happened? pt unable to state how this happened Surface the patient is resting on: Isoflex SKIN PREVENTION RECOMMENDATION: 1. Pressure redistribution support surface as appropriate 2. Elevate heels 3. Remove boots/TEDS every shift and reapply 4. Head of bed 30 degrees as tolerated 5. Assess nutrition and hydration 6. Manage moisture 7. Avoid the use of containment devices while in bed 8. Use absorptive products on surfaces limit layers of linens on bed 9. Turn and reposition every 1-2 hours in bed and every 1 hour in chair as tolerated 10. Weight shifts every 15 minutes while up in chair 11. Offloading with pillows or device to keep heels elevated off bed 12. Monitor skin at least every shift 13. Inspect under medical devices twice a day WOUND TREATMENT RECOMMENDATIONS: Consult podiatry for area to left lateral ankle. Venous and arterial studies to bilateral lower extremities for wound Unstageable guidelines: Cleanse left lateral aspect of ankle with nss and apply sureprep around the wound therahoney to wound bed and cover with optifoam gentle every 2 days and prn for soiling. Heel raiser pro boots to bilateral feet while in bed. Wheelchair cushion when oob. Stage 2 guidelines: Cleanse right posterior upper thigh and coccyx with nss and apply sureprep around the wound hydrogel to wound bed and cover with optifoam gentle daily and prn for soiling. D/C stage 2 guidelines to right buttocks and coccyx and right posterior thigh that were entered on 05/05/19.
--- NOTE | 2019-05-06 10:30 | NUR ---
Editing Computer Publisher in to talk to patient. Patient states lives at home with 24 hour caregivers. There are 0 steps in the home. Physician: Dr. Burgos Pharmacy: [facility] services: none Patient's level of ADLs: minimal assistance normally Patient has working utilities: yes DME: hospital bed, wheelchair Follow-up physician's appointment after d/c: daughter prefers to make her mother's follow up appt after discharge Does patient want to access PORTAL?: no Discharge plan discussed with daughter who is at the bedside. She lives at home with 24 hour caregivers. She has a caregiver Monday through Monday and a different caregiver on the weekend. She normally needs minimal assistance. She gets around in a wheelchair at home. Daughter would like to see about getting her mother a body wedge and a gel cushion for her wheelchair. Notified Dr. Samuels and daughter states she will notify Dr. Samuels also when he makes rounds. Her family does take her out for ice cream and rides. When medically stable she will be discharged to home with the resumption of her 24 hour caregivers. Daughter will transport on discharge. JAMEL WAGNER
--- NOTE | 2019-05-06 11:00 | NUR ---
ASSUMED CARE FOR THIS PT AT THIS TIME. FAMILY AT BEDSIDE. NO S/S OF DISTRESS NOTED. BED ALARM ON W/CALL LIGHT IN REACH.
--- NOTE | 2019-05-06 11:26 | NUR ---
Dr. Harper notified of wound care recommendations.
--- NOTE | 2019-05-06 11:30 | NUR ---
PODIATRY NOTIFIED OF NEW CONSULT FOR LT LATERAL ANKLE UNSTAGEABLE WOUND. WILL SEE TODAY.
[2019-05-06 12:00] VITALS: BP 150/62
--- NOTE | 2019-05-06 13:22 | NUR ---
PT'S FAMILY REFUSING LOWER LEG ULTRASOUNDS. DAUGHTER CATIA, WHO I SPOKE TO ON THE PHONE STATED PT HAS A VASCULAT SURGEON SHE SEES AND THEY ARE AWARE OF WOUND ON FOOT AND VASCULAR STUDIES HAVE ALREADY BEEN COMPLETED BY THE VASCULAR SURGEONS. DR FUNES UPDATED.
--- NOTE | 2019-05-06 14:54 | NUR ---
PHYSICAL THERAPY Physical therapy evaluation attempted however Pt is nonverbal. Therapist attempted to communicate with Pt but was unable. Will attempt at a later time when family/caregiver is present to provide assistance. Thank you Kelly Finley, PT, DPT
[2019-05-06 16:00] VITALS: BP 163/88
--- NOTE | 2019-05-06 16:03 | NUR ---
Nursing screen received as well as occupational therapy orders. Will follow up with patient for completion of OT evaluation and POC. Thank you. Sarah Vora, OTR/L
[2019-05-06 20:00] VITALS: BP 110/76
[2019-05-07] VITALS (7 sets, daily range): BP systolic 147–190; BP diastolic 78–116
--- NOTE | 2019-05-07 02:13 | NUR ---
DR GIRON NOTIFIED OF CONTINUED HYPERTENSION. NEW ORDER FOR CLONIDINE OBTAINED.
--- NOTE | 2019-05-07 02:28 | NUR ---
CLONIDINE GIVEN TO PATIENT. PATIENT TOOK MED WITHOUT ANY ISSUE.
[2019-05-07 06:03] LABS: BUN 13 mg/dl (7-24); CHLORIDE 115 mmol/L (98-107); CREATININE 0.55 mg/dL (0.55-1.02); POTASSIUM 3.7 mmol/L (3.5-5.1); SODIUM 144 mmol/L (136-145)
[2019-05-07 06:20] LABS: EOS % 1.2 % (1.0-4.0); HEMOGLOBIN 10.1 g/dl (12.0-16.0); LYMPH # 0.8 10*3/uL (1.3-4.4); LYMPH % 32.4 % (27.0-41.0); MEAN CELL VOLUME 99.4 fl (81.0-99.0); MEAN CORPUSCULAR HGB 30.4 pg (27.0-31.0); MEAN CORPUSCULAR HGB CONC 30.6 g/dl (33.0-37.0); MEAN PLATELET VOLUME 10.7 fl (9.6-12.3); MONO # 0.3 10*3/uL (0.1-1.0); NEUT # 1.5 10*3/uL (2.3-7.9); NEUT % 56.4 % (47.0-73.0); PLATELET COUNT AUTOMATED 197 10*3/uL (130-400); RED BLOOD COUNT 3.32 10*6/uL (4.10-5.10); RED CELL DISTRI WIDTH 14.8 % (0-14.5); WHITE BLOOD COUNT 2.6 10*3/uL (4.8-10.8)
--- NOTE | 2019-05-07 10:04 | NUR ---
Dr. Berrios notified of wound care recommendations.
--- NOTE | 2019-05-07 10:30 | NUR ---
Vet Assistant in to see patient. No new needs or request at this time. When medically stable she will be discharged to home with the resumption of her 24 hour caregivers. Per multidisciplinary discharge planning meeting plan is to discharge patient tomorrow, Monday.
--- NOTE | 2019-05-07 11:48 | NUR ---
MEDICATED WITH TYLENOL PER ORDER AND REQUEST BY DAUGHTER FOR LEG PAIN.
--- NOTE | 2019-05-07 12:50 | NUR ---
PHYSICAL THERAPY Physical therapy evaluation completed, 4E. Full details to follow. High complexity determined after evaluation/chart review; 737[address]. PT to work on bed mobility, transfers, sitting balance and endurance. Recommending returning home with 24 hour caregiver. Thank you Kelly Finley, PT, DPT
--- NOTE | 2019-05-07 17:54 | NUR ---
PATIENT DAUGHTER NEEDS A PRESCRIPTION FOR A GEL CUSHION AND A BODY WEDGE FOR HOME UPON DISCHARGE.
--- NOTE | 2019-05-07 19:18 | NUR ---
PATIENT PULLED IV HEP LOCK OUT. SCANT BLOOD NOTED. PATIENT AGGRESSIVE WHEN TRYING TO TAKE HEP LOCK OUT OF HAND. REORIENTED TO TIME AND PLACE. BED ALARM ON, CALL LIGHT IN REACH
--- NOTE | 2019-05-07 19:39 | NUR ---
DR GIRON MADE AWARE OF PATIENT'S HEART RATE AND BLOOD PRESSURE. STATES TO HOLD APRESOLINE RIGHT NOW AND HE WILL ORDER AND EXTRA DOSE OF LOPRESSOR.
--- NOTE | 2019-05-07 20:15 | NUR ---
PO MEDICATIONS TAKEN WITHOUT DIFFICULTY. NEW HEP LOCK STARTED IN LAC.
--- NOTE | 2019-05-07 20:58 | NUR ---
PATIENT PULLED IV OUT WITH CATHETER INTACT. NO BLEEDING NOTED. AREA SWOLLEN AND RED. ICE PACK APPLIED. ATTEMPTED TO NOTIFY DR GIRON, NO ANSWER
--- NOTE | 2019-05-07 21:04 | NUR ---
DR GIRON AWARE OF PATIENT PULLING IV OUT AND UNABLE TO GET IV ACCESS AT THIS TIME.
[2019-05-08] VITALS: BP 148/99
--- NOTE | 2019-05-08 00:23 | NUR ---
DR GIRON MADE AWARE OF PATIENT'S RHYTHM CHANGES
--- NOTE | 2019-05-08 04:27 | NUR ---
DR GIRON NOTIFIED OF HEART RATE AND RHYTHM
--- NOTE | 2019-05-08 04:51 | NUR ---
PATIENT PULLED MONITOR LEADS OFF AND IS REFUSING TO LET THIS RN PUT THEM BACK ON. SWINGING AND BEING COMBATIVE AT THIS TIME. DR GIRON MADE AWARE
--- NOTE | 2019-05-08 05:28 | NUR ---
PATIENT REFUSING TO BE CHECKED OR TURNED. REGUSING TO HAVE BLOOD PRESSURE TAKEN, WILL NOT LET THIS RN PUT MONITOR LEADS BACK ON. SWINGING AT THIS RN WHEN TRYING TO GIVE [address] GIRON MADE AWARE
[2019-05-08 08:00] VITALS: BP 152/94
--- NOTE | 2019-05-08 09:01 | NUR ---
Occupational therapy orders received and OT evaluation and POC completed in full on floor four. Patient precautions include fall risk, B/L LE contractures, decreased cognition, and bed alarm. Per OT eval and POC, OT recommends patient return to prior living with HH SN, OT, and PT with / supervision assist. Patient would benefit from OT treatment to maximize independence with basic ADLs and transfers. Patient complexity is moderate, [id number]. Thank you for the referral. Sarah Vora, OTR/L
--- NOTE | 2019-05-08 09:05 | NUR ---
PHYSICAL THERAPY Patient seen this am 1:1 for therapy visit and was resting supine in bed upon therapist arrival. Patient identified by wristband name / . Patient was a little [place] and presented with B heel protectors. Patient transfers supine to sit EOB with MAX A, tolerating static EOB sit x 5 minutes, initial CGA, then MIN A secondary to increased fatigue / decreased core strength. Patient was briefly able to rock fwd/bkwd with therapist LISBETH and needed multiple v/c's to complete all therapy task this session. Patient returned to supine in bed and remained with call light and B heel protectors, pillow between her knees to prevent skin breakdown and bed alarm for safety. Will continue per POC as tolerated, total treatment time 13 minutes. Benito Paz, GIS ENGINEER
[2019-05-08 10:05] LABS: BASO % 0.4 % (0.0-1.0); EOS % 1.1 % (1.0-4.0); HEMATOCRIT 39.6 % (37.0-47.0); HEMOGLOBIN 12.3 g/dl (12.0-16.0); LYMPH # 0.8 10*3/uL (1.3-4.4); LYMPH % 29.5 % (27.0-41.0); MEAN CORPUSCULAR HGB 31.1 pg (27.0-31.0); MEAN CORPUSCULAR HGB CONC 31.1 g/dl (33.0-37.0); MEAN PLATELET VOLUME 10.3 fl (9.6-12.3); MONO # 0.2 10*3/uL (0.1-1.0); MONO % 7.1 % (3.0-9.0); NEUT # 1.7 10*3/uL (2.3-7.9); NEUT % 61.5 % (47.0-73.0); PLATELET COUNT AUTOMATED 214 10*3/uL (130-400); RED BLOOD COUNT 3.96 10*6/uL (4.10-5.10); RED CELL DISTRI WIDTH 14.8 % (0-14.5); WHITE BLOOD COUNT 2.8 10*3/uL (4.8-10.8)
[2019-05-08 10:14] LABS: BUN 10 mg/dl (7-24); CHLORIDE 110 mmol/L (98-107); CREATININE 0.58 mg/dL (0.55-1.02); POTASSIUM 3.6 mmol/L (3.5-5.1); SODIUM 143 mmol/L (136-145)
[2019-05-08 12:00] VITALS: BP 150/82
[2019-05-08 16:00] VITALS: BP 143/88
--- NOTE | 2019-05-08 17:25 | NUR ---
DR. LERMA AWARE OF CONSULT.
[2019-05-08 20:00] VITALS: BP 164/80
--- NOTE | 2019-05-08 22:40 | NUR ---
PATIENT REFUSED TO ALLOW BLOOD GLUCOSE TO BE CHECKED AT THIS TIME. PATIENT BECAME COMBATIVE UPON ATTEMPT.
[2019-05-09] VITALS: BP 158/64
[2019-05-09 08:00] VITALS: BP 160/90
--- NOTE | 2019-05-09 10:30 | NUR ---
Shellfish Grower in to see patient. No new needs or request at this time. When medically stable she will be discharged to home with the resumption of her 24 hour caregivers. Per multidisciplinary discharge planning meeting Dr. Hill is a consult for pneumonia. Awaiting Dr. Hill's recommendations.
--- NOTE | 2019-05-09 11:05 | NUR ---
PHYSICAL THERAPY Patient was eating breakfast at 10:05. Will check back later. GARIMA HERNANDEZ FARMWORKER MACHINE
--- NOTE | 2019-05-09 11:43 | NUR ---
PHYSICAL THERAPY Patient presented to therapy in supine with head of bed elevated and bed alarm activated. Patient was identifed by and ON WRISTBAND. Patient gives informed consent for treatment. Patient's daughter is in room visiting with patient. Patient performed supine to sitting transfer to EOB with MAX A X 2. Patient was unable to follow commands. Patient sat on EOB with CGA X 1 to SBA for for 10 minutes total. Patient received GENTLE Hamstring stretches to the bilateral LEs in setting at EOB. Patient performed LAQs with AAROM x 15 each LE. Patient is non- verbal. Patient transferred to supine with MAX A X 2. Patient was left in supine in bed with head of bed elevated, call light within reach, and bed alarm activated. PILLOW LEFT BETWEEN KNEES. Patient was 1:[address] COMMISSIONER for 20 minutes. GARIMA HERNANDEZ PTA thisPTA was 1:[address] COMMISSIONER
--- NOTE | 2019-05-09 11:48 | NUR ---
OT NOTE Pt was seen this A.M. 1:1 for 24 minute OT session. Upon arrival pt was supine in bed. Pt identified by name and on wristband due to pt being non-verbal. Pt transferred supine to sit EOB with maxA X 2. While sitting EOB requested for pt to complete ADL task of washing her face. Pt was able to complete with Karla with assist for set up and following commands. Challenged pt's static sitting tolerance needed for increased I in self care tasks and functional transfers. Pt was able to tolerate aprox 12 minutes before laying due to fatigue. Challenged pt's dynamic sitting balance needed for increased I in self care tasks and functional transfers, pt was able to maintain F+ sitting balance throughout. Pt then transferred back into bed sit to supine with maxa X 2. There she was left with call light in hand, tray table in place, and bed alarm activated for safety. Continue with POC as able. JOHAN Thompson
[2019-05-09 12:00] VITALS: BP 156/98
--- NOTE | 2019-05-09 12:49 | NUR ---
LAB CALLED AND STATED BLOOD THAT WAS DRAWN CLOTTED. PER FAMILY THEY DO NOT WANT A REPEAT DRAW IT UPSETS PT. PER DR SHANTEL MERCADO FOR NOW
[2019-05-09] MEDS ORDERED: CEFUROXIME AXE500 MG PO (13:26)
--- NOTE | 2019-05-09 14:08 | NUR ---
PTS FAMILY REFUSED TO LET ME TAKE DISCHARGE PHOTOS OF PTS WOUNDS. THEY STATED SINCE SHE WAS ALREADY DRESSED AND ITS UNCOMFORTABLE FOR THEIR MOTHER THEY SEE NO NEED FOR PHOTOS. I EXPLAINED THE POLICY AND THEY CONTINUED TO REFUSE
--- NOTE | 2019-05-09 14:58 | NUR ---
PT DISCHARGED. LEFT FLOOR VIA WHEELCHAIR IN THE COMPANY OF HER DAUGHTERS. DISCHARGE INSTRUCTIONS GIVEN TO FAMILY. DAUGHTERS VOICED UNDERSTANDING.
--- NOTE | 2019-05-10 08:15 | NUR ---
PHYSICAL THERAPY CO-SIGN I approve of the Physical Therapy notes written above. Kelly Finley, PT, DPT
--- NOTE | 2019-05-10 16:20 | NUR ---
OCCUPATIONAL THERAPY CO-SIGN I approve of the Occupational Therapy notes written above. NIKKO WESTON OTR/Sebastián
== END 2019-05-09 14:50 | disposition home or self-care (01) | DRG 70 ==
LOC: ED 18:20 → 4E 21:20 → EDHOLD 21:20 → 4E 21:56
PROVIDERS: Physician Assistant; Student in an Organized Health Care Education/Training Program; ADMIT Internal Medicine
DX: G93.41 Metabolic encephalopathy (principal); J18.9 Pneumonia, unspecified organism; I50.41 Acute combined systolic (congestive) and diastolic (congestive) heart failure; N39.0 Urinary tract infection, site not specified; E44.0 Moderate protein-calorie malnutrition; Z68.1 Body mass index [BMI] 19.9 or less, adult; I16.0 Hypertensive urgency; R53.1 Weakness; F03.90 Unspecified dementia, unspecified severity, without behavioral disturbance, psychotic disturbance, mood disturbance, and anxiety; I48.20 Chronic atrial fibrillation, unspecified; R79.89 Other specified abnormal findings of blood chemistry; E87.6 Hypokalemia; R31.9 Hematuria, unspecified; E05.90 Thyrotoxicosis, unspecified without thyrotoxic crisis or storm; E78.5 Hyperlipidemia, unspecified; I11.0 Hypertensive heart disease with heart failure; Y95 Nosocomial condition; D72.819 Decreased white blood cell count, unspecified; R00.0 Tachycardia, unspecified; B96.4 Proteus (mirabilis) (morganii) as the cause of diseases classified elsewhere; M19.90 Unspecified osteoarthritis, unspecified site; E11.9 Type 2 diabetes mellitus without complications; I25.10 Atherosclerotic heart disease of native coronary artery without angina pectoris; Z87.440 Personal history of urinary (tract) infections; Z88.0 Allergy status to penicillin; Z88.8 Allergy status to other drugs, medicaments and biological substances; Z90.49 Acquired absence of other specified parts of digestive tract; Z90.710 Acquired absence of both cervix and uterus; Z98.51 Tubal ligation status; Z82.49 Family history of ischemic heart disease and other diseases of the circulatory system; Z83.3 Family history of diabetes mellitus; Z82.3 Family history of stroke; Z86.73 Personal history of transient ischemic attack (TIA), and cerebral infarction without residual deficits; Z91.81 History of falling; Z86.12 Personal history of poliomyelitis; Z79.899 Other long term (current) drug therapy; Z86.718 Personal history of other venous thrombosis and embolism; Z82.5 Family history of asthma and other chronic lower respiratory diseases; Z82.0 Family history of epilepsy and other diseases of the nervous system

== ENCOUNTER 2019-05-16 11:44 | Inpatient (IN) | payer MEDICARE, BC ==
[~2019-05-16] VITALS: Ht 162.5 cm; Wt 46.9 kg
--- NOTE | ~2019-05-16 | EKG ---
[place], [place] ELECTROCARDIOGRAM REPORT NAME: MARIYA HEATH UNIT #: [id number] ROOM: 503 DOCTOR: NORMAN DRAFT REPORT BIRTHDATE: [birth year] [facility] Test Date: 2019-05-16 Test Time: 12:07:55 Pat Name: MARIYA HEATH Department: Room: 503 Gender: F Supply And Distribution Manager: : 1935 Requested By: MAREN KILPATRICK Order Number: [id number] Reading MD: Ora Gonzalez MD Measurements Intervals [place] Rate: 109 P: AL: QRS: 11 QRSD: 93 T: -89 QT: 367 QTc: 495 Interpretive Statements Atrial fibrillation Ventricular premature complex Anteroseptal infarct, old Abnormal T, consider ischemia, lateral leads Baseline wander in lead(s) V4 Compared to ECG 05/08/2019 00:16:26 Ventricular premature complex(es) now present Possible ischemia now present Myocardial infarct finding still present T-wave abnormality still present Electronically Signed On 05-19-2019 5:31:01 PST by Ora Gonzalez MD CM:EKGRPT:ELECTROCARDIOGRAM REPORT [id number] MAREN [place]USTIN DRAFT REPORT MAREN KILPATRICK MD
[~2019-05-16 11:44] MED LIST changes: +CEFUROXIME AXE500 MG PO
[2019-05-16 11:48] VITALS: BP 139/66
[2019-05-16 12:23] LABS: BASO % 0.3 % (0.0-1.0); EOS % 0.9 % (1.0-4.0); HEMATOCRIT 38.3 % (37.0-47.0); HEMOGLOBIN 11.7 g/dl (12.0-16.0); LYMPH # 0.8 10*3/uL (1.3-4.4); LYMPH % 22.8 % (27.0-41.0); MEAN CELL VOLUME 99.5 fl (81.0-99.0); MEAN CORPUSCULAR HGB 30.4 pg (27.0-31.0); MEAN CORPUSCULAR HGB CONC 30.5 g/dl (33.0-37.0); MEAN PLATELET VOLUME 9.9 fl (9.6-12.3); MONO # 0.4 10*3/uL (0.1-1.0); MONO % 10.3 % (3.0-9.0); NEUT # 2.3 10*3/uL (2.3-7.9); NEUT % 65.7 % (47.0-73.0); PLATELET COUNT AUTOMATED 238 10*3/uL (130-400); RED BLOOD COUNT 3.85 10*6/uL (4.10-5.10); RED CELL DISTRI WIDTH 15.3 % (0-14.5); WHITE BLOOD COUNT 3.5 10*3/uL (4.8-10.8)
[2019-05-16 12:40] LABS: ALBUMIN 2.7 gm/dl (3.1-4.5); ALKALINE PHOSPHATASE 59 U/L (45-117); BUN 12 mg/dl (7-24); CHLORIDE 108 mmol/L (98-107); CPK 25 U/L (26-192); CREATININE 0.71 mg/dL (0.55-1.02); POTASSIUM 3.7 mmol/L (3.5-5.1); SGOT/AST 14 IU/L (3-35); SGPT/ALT 13 U/L (12-78); SODIUM 143 mmol/L (136-145); TOTAL PROTEIN 6.6 gm/dL (6.4-8.2)
[2019-05-16 12:41] LABS: TROPONIN I < 0.015 ng/ml (<0.045)
[2019-05-16 12:44] LABS: INTERNATIONAL NORM RATIO 2.5 (2.0-3.5)
[2019-05-16 12:49] LABS: ACT PARTIAL THROMBO TIME 64.7 SECONDS (20.0-32.1)
[2019-05-16 14:35] LABS: BILIRUBIN NEGATIVE (NEGATIVE); CLARITY CLEAR (CLEAR); COLOR YELLOW (YELLOW); GLUCOSE NEGATIVE (NEGATIVE)
[2019-05-16 14:36] LABS: BLOOD NEGATIVE (NEGATIVE); KETONE NEGATIVE (NEGATIVE); LEUKO ESTERASE NEGATIVE (NEGATIVE); NITRITE NEGATIVE (NEGATIVE); UROBILINOGEN 0.2 E.U./dl (0.2-1.0)
[2019-05-16 14:37] LABS: EPITHELIAL CELLS 0-2; HYALINE CAST 0-2
[2019-05-16 16:00] VITALS: BP 158/90
--- NOTE | 2019-05-16 16:45 | NUR ---
A 84, admitted to , under the services of HAI James MD with a diagnosis of GENERALIZED WEAKNESS, DEHYDRATION. Chief complaint is WEAKNESS, DECREASED LOC. Patient arrived via bed from ER. Monitor applied. Initial assessment completed. Vital signs taken and recorded. HAI JAMES MD notified of admission to the unit. Orders received. See assessment for past medical history, medications and allergies. Patient and/or family oriented to unit. [facility] visitation policy reviewed. Clothing/patient valuable form completed. SANNA FRANCO
[2019-05-16 17:00] VITALS: BP 158/90
[2019-05-16 20:00] VITALS: BP 172/82
--- NOTE | 2019-05-16 20:01 | NUR ---
NOTIFIED DR. NAIR THAT PATIENTS MED REC WAS NOT CONTINUED AND THAT HER BLOOD PRESSURE WAS UP TO 172/82.
--- NOTE | 2019-05-16 21:23 | NUR ---
PATIENT TOOK HALF OF HER MEDICATIONS WHOLE IN APPLESAUCE AND THEN REFUSED THE REST.
[2019-05-17] VITALS: BP 170/96; BP 174/95
--- NOTE | 2019-05-17 00:19 | NUR ---
NOTIFIED DR. NAIR OF PATIENTS BLOOD PRESSURE BEING 170/96 MANUALLY. STATED THAT PATIENT TOOK HALF HER MEDICATIONS EARLIER, UNSURE OF WHICH MEDICATIONS WERE ACTUALLY TAKEN THEY WERE IN APPLESAUCE. AFTER ONE BITE PATIENT REFUSED THE REST.
--- NOTE | 2019-05-17 01:09 | NUR ---
PATIENT TOOK ORDERED LISINOPRIL AFTER MULTIPLE ATTEMPTS. PATIENT TOOK IT WITH APPLESAUCE WITHOUT PROBLEM WILL RECHECK BLOOD PRESSURE
[2019-05-17 02:04] VITALS: BP 166/90
--- NOTE | 2019-05-17 02:05 | NUR ---
NOTIFIED DR. NAIR OF PATIENTS BLOOD PRESSURE
[2019-05-17 04:00] VITALS: BP 158/82
--- NOTE | 2019-05-17 04:10 | NUR ---
24 HR chart check completed.
--- NOTE | 2019-05-17 05:47 | NUR ---
MARIYA HEATH [id number] Please refer to the physician's history and physical for past medical history, comorbid conditions, and allergies. Diagnosis: GENERALIZED WEAKNESS DEHYDRATION Franky Score: 12,HIGH RISK WOUND DESCRIPTIONS: Wound Number: 1 Location of the wound: coccyx Type of wound: stage 2 Thickness: Partial Size: 2.5cm x 2.2cm x 0.1cm Tunneling: none Undermining: none Sinus Tract: none Presence of Exudate: Serosanguineous Amount: Light Color: Red Odor: None Periwound Skin Appearance: Normal Wound edges: approximated Pain (associated with wound): none at time of assessment How does patient state this happened? pt unable to state how this happened Wound Number: 2 Location of the wound: right hip Type of wound: stage 1 Size: 0.5cm x 0.3cm x <0.1cm Tunneling: none Undermining: none Sinus Tract: none Presence of Exudate: none Amount: None Color: Red Odor: None Periwound Skin Appearance: Scar Wound edges: approximated Pain (associated with wound): none at time of assessmen How does patient state this happened? pt unable to state how this happened Wound Number: 3 Location of the wound: left lateral aspect of ankle Type of wound: unstageable Thickness: Full Size: 0.3cm x 0.3cm x <0.1cm Tunneling: none Undermining: none Sinus Tract: none Presence of Exudate: none Amount: None Color: Brown, yellow, red Odor: None Periwound Skin Appearance: Scar Wound edges: approximated Pain (associated with wound): none at time of assessment How does patient state this happened? pt unable to state how this happened Surface the patient is resting on: Isoflex SKIN PREVENTION RECOMMENDATION: 1. Pressure redistribution support surface as appropriate 2. Elevate heels 3. Remove boots/TEDS every shift and reapply 4. Head of bed 30 degrees as tolerated 5. Assess nutrition and hydration 6. Manage moisture 7. Avoid the use of containment devices while in bed 8. Use absorptive products on surfaces limit layers of linens on bed 9. Turn and reposition every 1-2 hours in bed and every 1 hour in chair as tolerated 10. Weight shifts every 15 minutes while up in chair 11. Offloading with pillows or device to keep heels elevated off bed 12. Monitor skin at least every shift 13. Inspect under medical devices twice a day WOUND TREATMENT RECOMMENDATIONS: Stage 2 guidelines: Cleanse coccyx with soap and water and apply calazime every shift and prn for soiling. Stage 1 guidelines: Apply sureprep to right hip allow time to dry then cover with optifoam gentle daily and prn for soiling Unstageable guidelines: Cleanse left lateral aspect of ankle with nss and apply sureprep around the wound threahoney to wound bed and cover with optifoam gentle. Wheelchair when oob. Heel raiser pro boots while out of bed.
[2019-05-17 06:44] LABS: BASO % 0.7 % (0.0-1.0); EOS # 0.1 10*3/uL (0.0-0.4); EOS % 1.8 % (1.0-4.0); HEMATOCRIT 36.9 % (37.0-47.0); HEMOGLOBIN 11.6 g/dl (12.0-16.0); LYMPH % 34.8 % (27.0-41.0); MEAN CELL VOLUME 97.4 fl (81.0-99.0); MEAN CORPUSCULAR HGB 30.6 pg (27.0-31.0); MEAN CORPUSCULAR HGB CONC 31.4 g/dl (33.0-37.0); MONO # 0.2 10*3/uL (0.1-1.0); MONO % 6.8 % (3.0-9.0); NEUT # 1.6 10*3/uL (2.3-7.9); NEUT % 55.5 % (47.0-73.0); PLATELET COUNT AUTOMATED 198 10*3/uL (130-400); RED BLOOD COUNT 3.79 10*6/uL (4.10-5.10); RED CELL DISTRI WIDTH 14.7 % (0-14.5); WHITE BLOOD COUNT 2.8 10*3/uL (4.8-10.8)
[2019-05-17 06:53] LABS: INTERNATIONAL NORM RATIO 1.3 (2.0-3.5)
[2019-05-17 07:02] LABS: ALBUMIN 2.5 gm/dl (3.1-4.5); ALKALINE PHOSPHATASE 58 U/L (45-117); BUN 9 mg/dl (7-24); CHLORIDE 112 mmol/L (98-107); CREATININE 0.43 mg/dL (0.55-1.02); PHOSPHOROUS 2.4 mg/dL (2.5-4.9); POTASSIUM 3.3 mmol/L (3.5-5.1); SGOT/AST 14 IU/L (3-35); SGPT/ALT 10 U/L (12-78); SODIUM 142 mmol/L (136-145); TOTAL PROTEIN 6.2 gm/dL (6.4-8.2)
[2019-05-17 07:10] LABS: PREALBUMIN 12 mg/dl (20-40)
--- NOTE | 2019-05-17 07:58 | NUR ---
Dr. Harper notified of wound care orders needed.
[2019-05-17 08:00] VITALS: BP 184/90
--- NOTE | 2019-05-17 11:01 | NUR ---
SOME PILLS TAKEN WITHOUT DIFFICULTY BUT REFUSED TO TAKE OTHERS
[2019-05-17 12:00] VITALS: BP 180/80
--- NOTE | 2019-05-17 12:30 | NUR ---
PHYSICAL THERAPY Physical therapy referral and screen received. Thank you Kelly fernandes, PT, DPT
--- NOTE | 2019-05-17 12:37 | NUR ---
Outcomes Analyst in to talk to patient. Patient states lives at HOME with 24 HOUR CAREGIVERS. There are NO steps in the home. Physician: NICOLETTE [facility]acy: [facility] Home health services: NONE Patient's level of ADLs: MODERATE ASSIST Patient has working utilities: YES DME: [facility] Follow-up physician's appointment after d/c: DAUGHTER WILL MAKE APPOINTMENTS AFTER DISCHARGE Does patient want to access PORTAL?: NO Discharge plan PT LIVES AT HOME WITH 24 HOUR CAREGIVERS. HAS WHEELCHAIR AND HOSITAL BED. PLANS TO RETURN HOME WITH CAREGIVERS ON DISCHARGE. DAUGHTER IS PT POA. WILL CONTINUE TO FOLLOW. DAUGHTER WILL TAKE HER HOME.. SWAPNIL FERGUSON
[2019-05-17] MEDS ORDERED: ENSURE HIGH PR237 M1 PO (14:07)
--- NOTE | 2019-05-17 14:50 | NUR ---
Hep Lock discontinued. Site asymptomatic. Pressure applied. Sterile dressing applied. Discharge instructions reviewed with patient/family. Patient receptive and verbalizes understanding. Follow-up care arranged. Written instructions given to patient/family. TAKEN OUT VIA WHEEL CHAIR WITH DAUGHTER PRESENT SHANELLE BOINLLA
== END 2019-05-17 14:55 | disposition home or self-care (01) | DRG 640 ==
LOC: ED 11:44 → 5E 15:35 → EDHOLD 15:35 → 5E 16:05
PROVIDERS: Emergency Medicine; Student in an Organized Health Care Education/Training Program; ADMIT Internal Medicine
DX: E86.0 Dehydration (principal); E43 Unspecified severe protein-calorie malnutrition; I50.32 Chronic diastolic (congestive) heart failure; I69.351 Hemiplegia and hemiparesis following cerebral infarction affecting right dominant side; Z68.1 Body mass index [BMI] 19.9 or less, adult; E87.2 Acidosis; D72.810 Lymphocytopenia; I48.20 Chronic atrial fibrillation, unspecified; F03.90 Unspecified dementia, unspecified severity, without behavioral disturbance, psychotic disturbance, mood disturbance, and anxiety; E53.8 Deficiency of other specified B group vitamins; R29.6 Repeated falls; E11.69 Type 2 diabetes mellitus with other specified complication; Z79.4 Long term (current) use of insulin; I11.0 Hypertensive heart disease with heart failure; E78.5 Hyperlipidemia, unspecified; E55.9 Vitamin D deficiency, unspecified; R62.7 Adult failure to thrive; Z88.0 Allergy status to penicillin; Z88.9 Allergy status to unspecified drugs, medicaments and biological substances; E05.90 Thyrotoxicosis, unspecified without thyrotoxic crisis or storm; Z98.51 Tubal ligation status; Z90.49 Acquired absence of other specified parts of digestive tract; Z90.710 Acquired absence of both cervix and uterus; Z83.3 Family history of diabetes mellitus; Z82.3 Family history of stroke; Z82.49 Family history of ischemic heart disease and other diseases of the circulatory system

== ENCOUNTER 2019-08-18 11:31 | Inpatient (IN) | payer MEDICARE, BC ==
[2019-08-18] VITALS (9 sets, daily range): BP systolic 143–188; BP diastolic 78–154
[~2019-08-18] VITALS: Ht 157.4 cm; Wt 47.3 kg
[~2019-08-18 11:31] MED LIST changes: +ENSURE HIGH PR237 M1 PO
[2019-08-18 12:37] LABS: COLOR YELLOW (YELLOW)
[2019-08-18 12:38] LABS: BILIRUBIN NEGATIVE (NEGATIVE); BLOOD NEGATIVE (NEGATIVE); CLARITY TURBID (CLEAR); GLUCOSE NEGATIVE (NEGATIVE); KETONE NEGATIVE (NEGATIVE); LEUKO ESTERASE TRACE (NEGATIVE); NITRITE NEGATIVE (NEGATIVE); PH 5.5 (5.0-9.0); SPECIFIC GRAVITY 1.015 (1.005-1.030); UROBILINOGEN 0.2 E.U./dl (0.2-1.0)
[2019-08-18 12:42] LABS: YEAST 4+
[2019-08-18 12:45] LABS: EPITHELIAL CELLS 20-30; WBC 16-20 wbc/hpf (0-5)
[2019-08-18 13:14] LABS: BASO % 0.3 % (0.0-1.0); EOS % 0.6 % (1.0-4.0); HEMATOCRIT 37.5 % (37.0-47.0); HEMOGLOBIN 11.7 g/dl (12.0-16.0); LYMPH % 28.9 % (27.0-41.0); MEAN CELL VOLUME 98.2 fl (81.0-99.0); MEAN CORPUSCULAR HGB 30.6 pg (27.0-31.0); MEAN CORPUSCULAR HGB CONC 31.2 g/dl (33.0-37.0); MEAN PLATELET VOLUME 10.5 fl (9.6-12.3); MONO # 0.3 10*3/uL (0.1-1.0); MONO % 8.2 % (3.0-9.0); PLATELET COUNT AUTOMATED 213 10*3/uL (130-400); RED BLOOD COUNT 3.82 10*6/uL (4.10-5.10); WHITE BLOOD COUNT 3.3 10*3/uL (4.8-10.8)
[2019-08-18 13:26] LABS: ACT PARTIAL THROMBO TIME 39.8 SECONDS (20.0-32.1); INTERNATIONAL NORM RATIO 1.2 (2.0-3.5)
[2019-08-18 13:35] LABS: ALBUMIN 2.8 gm/dl (3.1-4.5); ALKALINE PHOSPHATASE 56 U/L (45-117); BUN 14 mg/dl (7-24); CHLORIDE 114 mmol/L (98-107); CPK 40 U/L (26-192); CREATININE 0.48 mg/dL (0.55-1.02); POTASSIUM 3.4 mmol/L (3.5-5.1); SGOT/AST 17 IU/L (3-35); SGPT/ALT 16 U/L (12-78); SODIUM 147 mmol/L (136-145); TOTAL PROTEIN 6.7 gm/dL (6.4-8.2); TROPONIN I 0.017 ng/ml (<0.045)
--- NOTE | 2019-08-18 15:09 | NUR ---
A 84, admitted to , under the services of HAI James MD with a diagnosis of UTI, DEHYDRATION, METABOLIC ENCEPHALOPATHY. Chief complaint is WEAKNESS, LETHARGY. Patient arrived via ambulatory from ER. Monitor applied. Initial assessment completed. Vital signs taken and recorded. HAI JAMES MD notified of admission to the unit. Orders received. See assessment for past medical history, medications and allergies. Patient and/or family oriented to unit. [facility] visitation policy reviewed. Clothing/patient valuable form completed. OSCAR BORREGO
--- NOTE | 2019-08-18 15:24 | NUR ---
PATIENT WAS TAKEN TO 4TH FLOOR BY THIS NURSE NO CHANGE IN PATIENT STATUS.
--- NOTE | 2019-08-18 15:28 | NUR ---
MED REC UPDATED VIA FAMILY. DGTR STATES NO CHANGES IN MEDS SINCE LAST ADMISSION.
--- NOTE | 2019-08-18 18:36 | NUR ---
CALLED FOR HR 140-167 AFIB RVR ON CM. NEW ORDER FOR CARDIZEM PUSH RECEIEVED AND TO CONSULT .
--- NOTE | 2019-08-18 18:40 | NUR ---
ATTEMPTED TO CALL FOR CONSULT. NO ANSWER. UNABLE TO LEAVE MS. WILL CALL AGAIN.
--- NOTE | 2019-08-18 18:58 | NUR ---
CONSULT CALLED TO . NEW ORDER FOR LOPRESSOR REC'D SEE SEP.
[2019-08-19] VITALS: BP 148/90
--- NOTE | 2019-08-19 01:36 | NUR ---
24 HR chart check completed.
[2019-08-19 06:12] VITALS: BP 166/94
[2019-08-19 06:28] LABS: BASO % 0.3 % (0.0-1.0); EOS # 0.1 10*3/uL (0.0-0.4); EOS % 1.8 % (1.0-4.0); HEMATOCRIT 35.2 % (37.0-47.0); LYMPH # 1.2 10*3/uL (1.3-4.4); LYMPH % 35.6 % (27.0-41.0); MEAN CELL VOLUME 99.7 fl (81.0-99.0); MEAN CORPUSCULAR HGB 31.2 pg (27.0-31.0); MEAN CORPUSCULAR HGB CONC 31.3 g/dl (33.0-37.0); MEAN PLATELET VOLUME 10.6 fl (9.6-12.3); MONO # 0.3 10*3/uL (0.1-1.0); MONO % 8.9 % (3.0-9.0); NEUT # 1.7 10*3/uL (2.3-7.9); NEUT % 53.1 % (47.0-73.0); PLATELET COUNT AUTOMATED 198 10*3/uL (130-400); RED BLOOD COUNT 3.53 10*6/uL (4.10-5.10); RED CELL DISTRI WIDTH 13.9 % (0-14.5); WHITE BLOOD COUNT 3.3 10*3/uL (4.8-10.8)
[2019-08-19 06:40] LABS: BUN 11 mg/dl (7-24); CHLORIDE 110 mmol/L (98-107); CREATININE 0.44 mg/dL (0.55-1.02); POTASSIUM 3.6 mmol/L (3.5-5.1); SODIUM 142 mmol/L (136-145)
--- NOTE | 2019-08-19 07:33 | NUR ---
MARIYA HEATH TYLER [id number] Please refer to the physician's history and physical for past medical history, comorbid conditions, and allergies. Diagnosis: ACUTE METABOLIC ENCEPHALOPATHY,AFIB WITH RVR,DEHYD Franky Score: 15,AT RISK WOUND DESCRIPTIONS: Wound Number: 1 Location of the wound: right hand Type of wound: skin tear Thickness: Partial Size: 1.0cm x 2.0cm x 0.1cm Tunneling: none Undermining: none Sinus Tract: none Presence of Exudate: Serous sanguineous Amount: Light Color: Red Odor: None Periwound Skin Appearance: Normal Wound edges: approximated Pain (associated with wound): none at time of assessment How does patient state this happened? pt unable to state how this happened Wound Number: 2 Location of the wound: right hip Type of wound: stage 3 Thickness: Full Size: 1.7cm x 1.1cm x 0.1cm Tunneling: none Undermining: none Sinus Tract: none Presence of Exudate: Serosanguineous Amount: Light Color: Yellow, red Odor: None Periwound Skin Appearance: Scar Wound edges: approximated Pain (associated with wound): none at time of assessment How does patient state this happened? pt unable to state how this happened Left hip is red and blanchable at time of assessment. No drainage at time of assessment. No open areas noted at time of assessment. Surface the patient is resting on: Position Pro SKIN PREVENTION RECOMMENDATION: 1. Pressure redistribution support surface as appropriate 2. Elevate heels 3. Remove boots/TEDS every shift and reapply 4. Head of bed 30 degrees as tolerated 5. Assess nutrition and hydration 6. Manage moisture 7. Avoid the use of containment devices while in bed 8. Use absorptive products on surfaces limit layers of linens on bed 9. Turn and reposition every 1-2 hours in bed and every 1 hour in chair as tolerated 10. Weight shifts every 15 minutes while up in chair 11. Offloading with pillows or device to keep heels elevated off bed 12. Monitor skin at least every shift 13. Inspect under medical devices twice a day WOUND TREATMENT RECOMMENDATIONS: Clarify partial thickness guidelines: Cleanse right hand with nss and apply sureprep around the wound hydrogel to wound bed and cover with optifoam gentle every 2 days and prn Heel raiser pro boots to bilateral feet while in bed Full thickness guidelines: Cleanse right hip with nss and apply sureprep around the wound therahoney to wound bed and cover with optifoam gentle every 2 days and prn for soiling. Dressing change: Apply sureprep to left hip allow time to dry then cover with optifoam gentle daily and prn for soiling.
[2019-08-19 08:00] VITALS: BP 160/80
--- NOTE | 2019-08-19 08:00 | NUR ---
ASSESSMENT COMPLETED AND DOCUMENTED. PATIENT LAYING COMFORTABLE IN BED. TURNED HER ON LEFT SIDE. PATIENT DISORIENTED AND SPEECH MUMBLED. González JOY.[facility]
--- NOTE | 2019-08-19 09:00 | NUR ---
Cnc Maintenance Technician in to talk to patient. Patient states lives at home with 24 hour caregivers. There are 0 steps in the home. Physician: Dr. Burgos Pharmacy: [facility] services: none Patient's level of ADLs: minimal assistance normally Patient has working utilities: yes DME: hospital bed, wheelchair Follow-up physician's appointment after d/c: daughter prefers to make her mother's follow up appt after discharge Does patient want to access PORTAL?: no Discharge plan discussed with daughter who is at the bedside. She lives at home with 24 hour caregivers. She has a caregiver Monday through Monday and a different caregiver on the weekend. She normally needs minimal assistance. She gets around in a wheelchair at home. When medically stable she will be discharged to home with the resumption of her 24 hour caregivers. Daughter will transport on discharge. JAMEL WAGNER
--- NOTE | 2019-08-19 10:00 | NUR ---
PATIENT LAYING IN BED RESTING. PATIENT COMFORTABLE APPEARS TO HAVE NO DISTRESS AT THIS TIME González ALVAREZN.[facility]
[2019-08-19 12:00] VITALS: BP 150/86
--- NOTE | 2019-08-19 13:48 | NUR ---
PATIENT SLEEPING, RESTING COMFORTABLY, NO DISTRESS AT THIS TIME DARLENE ALVAREZN.[facility]
[2019-08-19 16:00] VITALS: BP 152/84
--- NOTE | 2019-08-19 17:06 | NUR ---
CALL PLACED TO DR. ALEMAN TO CLARIFY IF PATIENT WAS TO BE ON 1/2 NS OR CONTINUE CURRENT ORDER FOR 1/2 NS WITH K, PER DR. ALEMAN GIVE THE 45 NS
--- NOTE | 2019-08-19 19:40 | NUR ---
ADVISED DR. KINNEY OF ELEVATER HR OF 140, NO NEW ORDERS AT THIS TIME.
--- NOTE | 2019-08-19 19:41 | NUR ---
MEDICATED WITH TYLENOL AT THIS TIME PER DAUGHTER'S REQUEST FOR GENERALIZED DISCOMFORT. ALSO MEDICATED WITH METOPROLOL AT THIS TIME FOR ELEVATED HEART RATE; WILL CONTINUE TO MONITOR. CALL LIGHT WITHIN REACH.
[2019-08-19 20:00] VITALS: BP 150/87
--- NOTE | 2019-08-19 20:15 | NUR ---
SPOKE WITH DR. CASPER PER PATIENTS DAUGHTER SHE WOULD LIKE TYLENOL GIVEN ROUTINELY BID, VERBAL ORDER RECEIVED AND ENTTERED ON CHART.
--- NOTE | 2019-08-19 22:00 | NUR ---
PT. COMBATIVE & WILL NOT TAKE HER MEDICATIONS AT THIS TIME.
--- NOTE | 2019-08-20 00:30 | NUR ---
MONITORED TECH CALL TO LET ME KNOW THAT PT.'S LEADS ARE OFF. UPON ENTERING ROOM PATIENT'S LEADS OFF & IV WAS PULLED OUT.
--- NOTE | 2019-08-20 00:35 | NUR ---
BATHED BY JOSEPH.
--- NOTE | 2019-08-20 00:40 | NUR ---
IV started left forearm with #22 protective cath after 2 attempts. Site prepped with Chloroprep. Sterile dressing applied. Patient tolerated procedure well. IV infusing at cc/hr. MARYBETH STEVE
--- NOTE | 2019-08-20 01:25 | NUR ---
PT. RESTING IN BED WITH EYES CLOSED. IV INFUSING ORDERED; WILL CONTINUE TO MONITOR.
--- NOTE | 2019-08-20 06:00 | NUR ---
COMBATIVE; REFUSING MEDICATIONS.
[2019-08-20 08:03] LABS: BASO % 0.3 % (0.0-1.0); EOS % 1.1 % (1.0-4.0); HEMATOCRIT 37.5 % (37.0-47.0); HEMOGLOBIN 11.6 g/dl (12.0-16.0); LYMPH # 1.1 10*3/uL (1.3-4.4); LYMPH % 30.8 % (27.0-41.0); MEAN CELL VOLUME 99.7 fl (81.0-99.0); MEAN CORPUSCULAR HGB 30.9 pg (27.0-31.0); MEAN CORPUSCULAR HGB CONC 30.9 g/dl (33.0-37.0); MEAN PLATELET VOLUME 11.1 fl (9.6-12.3); MONO # 0.4 10*3/uL (0.1-1.0); MONO % 10.4 % (3.0-9.0); NEUT # 2.1 10*3/uL (2.3-7.9); NEUT % 57.1 % (47.0-73.0); PLATELET COUNT AUTOMATED 197 10*3/uL (130-400); RED BLOOD COUNT 3.76 10*6/uL (4.10-5.10); RED CELL DISTRI WIDTH 13.8 % (0-14.5); WHITE BLOOD COUNT 3.6 10*3/uL (4.8-10.8)
[2019-08-20 08:22] LABS: BUN 11 mg/dl (7-24); CHLORIDE 110 mmol/L (98-107); CREATININE 0.49 mg/dL (0.55-1.02); SODIUM 142 mmol/L (136-145)
--- NOTE | 2019-08-20 09:00 | NUR ---
Instructional Support Specialist in to see patient. She is answering questions. She denies any home needs. When medically stable she will be discharged to home with her 24 hour caregivers.
--- NOTE | 2019-08-20 11:52 | NUR ---
DISCAHRGE PHOTOS AND MEASSUREMENTS TAKEN OF RT HAND AND RT HIP WOUNDS.
[2019-08-20] MEDS ORDERED: PRADAXA150 MG PO (12:09)
--- NOTE | 2019-08-20 12:20 | NUR ---
Discharge instructions reviewed with patient/family. Patient receptive and verbalizes understanding. Follow-up care arranged. Written instructions given to patient/family. OSCAR BORREGO
== END 2019-08-20 12:20 | disposition home or self-care (01) | DRG 757 ==
LOC: ED 11:31 → EDHOLD 13:59 → 4E 13:59
PROVIDERS: Emergency Medicine; Hospitalist; ADMIT Internal Medicine
DX: B37.49 Other urogenital candidiasis (principal); G93.41 Metabolic encephalopathy; E87.0 Hyperosmolality and hypernatremia; I48.91 Unspecified atrial fibrillation; E86.0 Dehydration; E87.6 Hypokalemia; D53.9 Nutritional anemia, unspecified; D70.9 Neutropenia, unspecified; F03.90 Unspecified dementia, unspecified severity, without behavioral disturbance, psychotic disturbance, mood disturbance, and anxiety; I50.9 Heart failure, unspecified; I11.0 Hypertensive heart disease with heart failure; E11.9 Type 2 diabetes mellitus without complications; Z90.49 Acquired absence of other specified parts of digestive tract; Z90.710 Acquired absence of both cervix and uterus; Z86.73 Personal history of transient ischemic attack (TIA), and cerebral infarction without residual deficits; Z82.3 Family history of stroke; Z83.3 Family history of diabetes mellitus; Z82.49 Family history of ischemic heart disease and other diseases of the circulatory system; Z88.0 Allergy status to penicillin; Z88.8 Allergy status to other drugs, medicaments and biological substances

== ENCOUNTER → 2020-02-24 | Outpatient (CLI) | payer MEDICARE, BC ==
[2020-02-24 15:51] LABS: BASO % 0.4 % (0.0-1.0); EOS # 0.1 10*3/uL (0.0-0.4); EOS % 1.6 % (1.0-4.0); HEMATOCRIT 43.2 % (37.0-47.0); LYMPH # 1.4 10*3/uL (1.3-4.4); LYMPH % 28.1 % (27.0-41.0); MEAN CELL VOLUME 94.7 fl (81.0-99.0); MEAN CORPUSCULAR HGB 28.9 pg (27.0-31.0); MEAN CORPUSCULAR HGB CONC 30.6 g/dl (33.0-37.0); MEAN PLATELET VOLUME 10.9 fl (9.6-12.3); MONO # 0.6 10*3/uL (0.1-1.0); NEUT # 2.9 10*3/uL (2.3-7.9); NEUT % 57.7 % (47.0-73.0); PLATELET COUNT AUTOMATED 187 10*3/uL (130-400); RED BLOOD COUNT 4.56 10*6/uL (4.10-5.10); RED CELL DISTRI WIDTH 16.7 % (0-14.5)
[2020-02-24 16:08] LABS: ALBUMIN 3.1 gm/dl (3.1-4.5); ALKALINE PHOSPHATASE 86 U/L (45-117); BUN 22 mg/dl (7-24); CHLORIDE 110 mmol/L (98-107); CREATININE 0.67 mg/dL (0.55-1.02); POTASSIUM 3.7 mmol/L (3.5-5.1); SGOT/AST 15 IU/L (3-35); SGPT/ALT 21 U/L (12-78); SODIUM 143 mmol/L (136-145); TOTAL PROTEIN 7.6 gm/dL (6.4-8.2)
[2020-02-24 16:09] LABS: FREE T4 1.33 ng/dl (0.76-1.46)
== END | disposition home or self-care (01) ==
LOC: LAB 15:23
PROVIDERS: Family Medicine
DX: I10 Essential (primary) hypertension (principal); E11.65 Type 2 diabetes mellitus with hyperglycemia; E03.9 Hypothyroidism, unspecified; R35.0 Frequency of micturition

== ENCOUNTER 2020-04-06 15:32 | Emergency (ER) | payer MEDICARE, BC ==
[2020-04-06 15:42] VITALS: BP 149/96
== END 2020-04-06 16:56 | disposition home or self-care (01) ==
LOC: ED 15:32
DX: R53.1 Weakness (principal); E78.5 Hyperlipidemia, unspecified; E11.9 Type 2 diabetes mellitus without complications; I48.91 Unspecified atrial fibrillation; I11.0 Hypertensive heart disease with heart failure; I50.9 Heart failure, unspecified; Z88.0 Allergy status to penicillin; Z88.8 Allergy status to other drugs, medicaments and biological substances; Z79.899 Other long term (current) drug therapy; Z79.84 Long term (current) use of oral hypoglycemic drugs; Z90.49 Acquired absence of other specified parts of digestive tract

== ENCOUNTER 2020-07-17 17:09 | Emergency (ER) | payer MEDICARE, BC ==
[~2020-07-17] VITALS: Ht 157.4 cm; Wt 34.9 kg
[2020-07-17 17:40] LABS: BILIRUBIN Negative (Negative); BLOOD Trace-Intact (Negative); CLARITY Cloudy (Clear); COLOR Yellow (Yellow); GLUCOSE Negative (Negative); KETONE Negative (Negative); LEUKO ESTERASE 3+ (Negative); NITRITE Negative (Negative); PH 6.5 (4.5-8.0); SPECIFIC GRAVITY 1.015 (1.001-1.030)
[2020-07-17 17:53] LABS: BASO % 0.3 % (0.0-1.0); EOS % 0.5 % (1.0-4.0); HEMATOCRIT 44.8 % (37.0-47.0); LYMPH # 1.3 10*3/uL (1.3-4.4); LYMPH % 21.9 % (27.0-41.0); MEAN CELL VOLUME 95.3 fl (81.0-99.0); MEAN CORPUSCULAR HGB 30.2 pg (27.0-31.0); MEAN CORPUSCULAR HGB CONC 31.7 g/dl (33.0-37.0); MEAN PLATELET VOLUME 10.4 fl (9.6-12.3); MONO # 0.7 10*3/uL (0.1-1.0); MONO % 11.6 % (3.0-9.0); NEUT # 3.9 10*3/uL (2.3-7.9); NEUT % 65.4 % (47.0-73.0); PLATELET COUNT AUTOMATED 184 10*3/uL (130-400); RED CELL DISTRI WIDTH 15.3 % (0-14.5)
[2020-07-17 18:04] LABS: BACTERIA 2+; RBC 31-40 rbc/hpf (0-2); WBC 51-100 wbc/hpf (0-5)
[2020-07-17 18:11] LABS: ALBUMIN 3.3 gm/dl (3.1-4.5); ALKALINE PHOSPHATASE 85 U/L (45-117); BUN 14 mg/dl (7-24); CHLORIDE 104 mmol/L (98-107); CREATININE 0.55 mg/dL (0.55-1.02); POTASSIUM 3.6 mmol/L (3.5-5.1); SGOT/AST 21 IU/L (3-35); SGPT/ALT 33 U/L (12-78); SODIUM 139 mmol/L (136-145); TOTAL PROTEIN 7.8 gm/dL (6.4-8.2)
[2020-07-17 20:15] VITALS: BP 140/88
== END 2020-07-17 18:53 | disposition home or self-care (01) ==
LOC: ED 17:09
PROVIDERS: Internal Medicine
DX: N39.0 Urinary tract infection, site not specified (principal); R41.82 Altered mental status, unspecified; Z88.8 Allergy status to other drugs, medicaments and biological substances; Z88.0 Allergy status to penicillin; Z79.899 Other long term (current) drug therapy

== ENCOUNTER 2021-03-15 17:16 | Emergency (ER) | payer MEDICARE, BC ==
[~2021-03-15] VITALS: Wt 58.5 kg
[~2021-03-15 17:16] MED LIST changes: -GLUCOPHAGE500 M1 PO; +GLUCOPHAGE500 MG PO
[2021-03-15 18:00] VITALS: BP 146/69
[2021-03-15 18:44] LABS: BASO % 0.5 % (0.0-1.0); EOS # 0.2 10*3/uL (0.0-0.4); EOS % 3.8 % (1.0-4.0); HEMATOCRIT 47.3 % (37.0-47.0); LYMPH # 1.5 10*3/uL (1.3-4.4); LYMPH % 33.2 % (27.0-41.0); MEAN CELL VOLUME 101.9 fl (81.0-99.0); MEAN CORPUSCULAR HGB CONC 30.4 g/dl (33.0-37.0); MEAN PLATELET VOLUME 9.9 fl (9.6-12.3); MONO # 0.6 10*3/uL (0.1-1.0); MONO % 13.8 % (3.0-9.0); NEUT # 2.2 10*3/uL (2.3-7.9); NEUT % 48.5 % (47.0-73.0); PLATELET COUNT AUTOMATED 142 10*3/uL (130-400); RED BLOOD COUNT 4.64 10*6/uL (4.10-5.10); RED CELL DISTRI WIDTH 15.1 % (0-14.5); WHITE BLOOD COUNT 4.4 10*3/uL (4.8-10.8)
[2021-03-15 19:01] LABS: ALBUMIN 2.9 gm/dl (3.1-4.5); ALKALINE PHOSPHATASE 86 U/L (45-117); BUN 20 mg/dl (7-24); CHLORIDE 109 mmol/L (98-107); CREATININE 0.51 mg/dL (0.55-1.02); POTASSIUM 3.8 mmol/L (3.5-5.1); SGOT/AST 17 IU/L (3-35); SGPT/ALT 21 U/L (12-78); SODIUM 141 mmol/L (136-145); TOTAL PROTEIN 7.5 gm/dL (6.4-8.2)
[2021-03-15 19:02] LABS: TROPONIN I 0.034 ng/ml (<0.045)
[2021-03-15 21:05] LABS: BILIRUBIN Negative (Negative); BLOOD Negative (Negative); CLARITY Clear (Clear); COLOR Dark Yellow (Yellow); GLUCOSE Negative (Negative); KETONE Negative (Negative); LEUKO ESTERASE 2+ (Negative); NITRITE Negative (Negative); SPECIFIC GRAVITY 1.025 (1.001-1.030)
[2021-03-15 21:12] LABS: BACTERIA 2+; MUCOUS 1+; RBC 0-2 rbc/hpf (0-2); WBC 16-20 wbc/hpf (0-5)
[2021-03-15] MEDS ORDERED: SEPTDS PO ×2 (21:49)
== END 2021-03-15 22:40 | disposition home or self-care (01) ==
LOC: ED 17:16
PROVIDERS: Physician Assistant
DX: N39.0 Urinary tract infection, site not specified (principal); R05 Cough

== ENCOUNTER 2021-03-28 10:24 | Inpatient (IN) | payer MEDICARE, BC ==
[2021-03-28] VITALS (17 sets, daily range): BP systolic 121–173; BP diastolic 74–111
[~2021-03-28] VITALS: Ht 157.4 cm; Wt 56.7 kg
[~2021-03-28 10:24] MED LIST changes: +SEPTDS PO
[2021-03-28 10:57] LABS: BASO % 0.1 % (0.0-1.0); HEMATOCRIT 42.2 % (37.0-47.0); LYMPH # 0.6 10*3/uL (1.3-4.4); LYMPH % 3.8 % (27.0-41.0); MEAN CELL VOLUME 97.2 fl (81.0-99.0); MEAN CORPUSCULAR HGB 31.1 pg (27.0-31.0); MEAN PLATELET VOLUME 10.5 fl (9.6-12.3); MONO # 1.1 10*3/uL (0.1-1.0); MONO % 7.5 % (3.0-9.0); NEUT # 12.6 10*3/uL (2.3-7.9); PLATELET COUNT AUTOMATED 258 10*3/uL (130-400); RED BLOOD COUNT 4.34 10*6/uL (4.10-5.10); RED CELL DISTRI WIDTH 14.9 % (0-14.5); WHITE BLOOD COUNT 14.3 10*3/uL (4.8-10.8)
[2021-03-28 11:14] LABS: ALBUMIN 2.8 gm/dl (3.1-4.5); ALKALINE PHOSPHATASE 77 U/L (45-117); BUN 22 mg/dl (7-24); CHLORIDE 111 mmol/L (98-107); CREATININE 0.81 mg/dL (0.55-1.02); POTASSIUM 4.4 mmol/L (3.5-5.1); SGOT/AST 56 IU/L (3-35); SGPT/ALT 25 U/L (12-78); SODIUM 140 mmol/L (136-145); TOTAL PROTEIN 7.5 gm/dL (6.4-8.2)
[2021-03-28 11:17] LABS: TROPONIN I 0.878 ng/ml (<0.045)
[2021-03-28 11:19] LABS: ACT PARTIAL THROMBO TIME 38.9 SECONDS (20.0-32.1); INTERNATIONAL NORM RATIO 1.2 (2.0-3.5)
[2021-03-28 13:50] LABS: BILIRUBIN Negative (Negative); BLOOD Negative (Negative); CLARITY Cloudy (Clear); COLOR Dark Yellow (Yellow); GLUCOSE 1+ (Negative); KETONE Trace (Negative); LEUKO ESTERASE 1+ (Negative); NITRITE Negative (Negative)
[2021-03-28 14:17] LABS: BACTERIA 3+
[2021-03-29] VITALS (10 sets, daily range): BP systolic 131–165; BP diastolic 55–94
[2021-03-29 06:04] LABS: ALBUMIN 2.7 gm/dl (3.1-4.5); ALKALINE PHOSPHATASE 74 U/L (45-117); BUN 23 mg/dl (7-24); CHLORIDE 113 mmol/L (98-107); CREATININE 0.74 mg/dL (0.55-1.02); POTASSIUM 4.2 mmol/L (3.5-5.1); SGOT/AST 46 IU/L (3-35); SODIUM 144 mmol/L (136-145); TOTAL PROTEIN 7.4 gm/dL (6.4-8.2)
[2021-03-29 06:06] LABS: SGPT/ALT 23 U/L (12-78)
[2021-03-29 07:43] LABS: BASO % 0.1 % (0.0-1.0); HEMATOCRIT 41.4 % (37.0-47.0); LYMPH # 0.7 10*3/uL (1.3-4.4); LYMPH % 4.7 % (27.0-41.0); MEAN CELL VOLUME 99.5 fl (81.0-99.0); MEAN CORPUSCULAR HGB 31.5 pg (27.0-31.0); MEAN CORPUSCULAR HGB CONC 31.6 g/dl (33.0-37.0); MEAN PLATELET VOLUME 11.1 fl (9.6-12.3); MONO # 1.2 10*3/uL (0.1-1.0); NEUT # 12.8 10*3/uL (2.3-7.9); NEUT % 86.7 % (47.0-73.0); PLATELET COUNT AUTOMATED 245 10*3/uL (130-400); RED BLOOD COUNT 4.16 10*6/uL (4.10-5.10); RED CELL DISTRI WIDTH 15.3 % (0-14.5); WHITE BLOOD COUNT 14.7 10*3/uL (4.8-10.8)
[2021-03-29] MEDS ORDERED: ELIQUIS5 M1 PO (11:06)
[2021-03-30] VITALS (11 sets, daily range): BP systolic 95–149; BP diastolic 41–86
[2021-03-30 06:31] LABS: BASO % 0.1 % (0.0-1.0); HEMATOCRIT 41.2 % (37.0-47.0); LYMPH # 0.6 10*3/uL (1.3-4.4); LYMPH % 4.5 % (27.0-41.0); MEAN CORPUSCULAR HGB 30.9 pg (27.0-31.0); MEAN CORPUSCULAR HGB CONC 30.3 g/dl (33.0-37.0); MEAN PLATELET VOLUME 11.4 fl (9.6-12.3); MONO # 0.9 10*3/uL (0.1-1.0); MONO % 6.1 % (3.0-9.0); NEUT # 12.5 10*3/uL (2.3-7.9); NEUT % 88.5 % (47.0-73.0); PLATELET COUNT AUTOMATED 177 10*3/uL (130-400); RED BLOOD COUNT 4.04 10*6/uL (4.10-5.10); RED CELL DISTRI WIDTH 15.4 % (0-14.5); WHITE BLOOD COUNT 14.1 10*3/uL (4.8-10.8)
[2021-03-30 06:44] LABS: ALBUMIN 2.3 gm/dl (3.1-4.5); ALKALINE PHOSPHATASE 81 U/L (45-117); BUN 24 mg/dl (7-24); CHLORIDE 117 mmol/L (98-107); CHOLESTEROL 114 mg/dL (<200); CREATININE 0.66 mg/dL (0.55-1.02); LDL CHOLESTEROL 63 mg/dL (9-159); POTASSIUM 4.3 mmol/L (3.5-5.1); SGOT/AST 69 IU/L (3-35); SGPT/ALT 28 U/L (12-78); SODIUM 144 mmol/L (136-145); TOTAL PROTEIN 7.2 gm/dL (6.4-8.2); TRIGLYCERIDES 71 mg/dl (<150)
[2021-03-30 07:48] LABS: FREE T4 1.88 ng/dl (0.76-1.46)
[2021-03-30 07:53] LABS: THYROID STIM HORMONE (HS) 0.337 uIU/ml (0.358-4.75)
[2021-03-31] VITALS (11 sets, daily range): BP systolic 112–160; BP diastolic 66–94
[2021-03-31 06:22] LABS: BASO % 0.1 % (0.0-1.0); HEMATOCRIT 39.1 % (37.0-47.0); LYMPH % 9.3 % (27.0-41.0); MEAN CORPUSCULAR HGB 31.5 pg (27.0-31.0); MEAN CORPUSCULAR HGB CONC 31.2 g/dl (33.0-37.0); MEAN PLATELET VOLUME 10.9 fl (9.6-12.3); MONO # 0.8 10*3/uL (0.1-1.0); MONO % 6.8 % (3.0-9.0); NEUT # 9.3 10*3/uL (2.3-7.9); NEUT % 83.4 % (47.0-73.0); PLATELET COUNT AUTOMATED 219 10*3/uL (130-400); RED BLOOD COUNT 3.87 10*6/uL (4.10-5.10); RED CELL DISTRI WIDTH 15.4 % (0-14.5); WHITE BLOOD COUNT 11.1 10*3/uL (4.8-10.8)
[2021-03-31 06:23] LABS: BUN 24 mg/dl (7-24); CHLORIDE 122 mmol/L (98-107); POTASSIUM 3.9 mmol/L (3.5-5.1); SODIUM 149 mmol/L (136-145)
[2021-03-31 06:26] LABS: CREATININE 0.68 mg/dL (0.55-1.02)
[2021-04-01] VITALS: BP 165/67
[2021-04-01 07:53] LABS: BASO % 0.1 % (0.0-1.0); HEMATOCRIT 41.2 % (37.0-47.0); LYMPH # 0.7 10*3/uL (1.3-4.4); LYMPH % 8.3 % (27.0-41.0); MEAN CELL VOLUME 101.2 fl (81.0-99.0); MEAN CORPUSCULAR HGB CONC 30.6 g/dl (33.0-37.0); MEAN PLATELET VOLUME 10.5 fl (9.6-12.3); MONO # 0.6 10*3/uL (0.1-1.0); NEUT # 7.3 10*3/uL (2.3-7.9); PLATELET COUNT AUTOMATED 236 10*3/uL (130-400); RED BLOOD COUNT 4.07 10*6/uL (4.10-5.10); RED CELL DISTRI WIDTH 15.1 % (0-14.5); WHITE BLOOD COUNT 8.7 10*3/uL (4.8-10.8)
[2021-04-01 08:00] VITALS: BP 172/79
[2021-04-01 08:08] LABS: BUN 19 mg/dl (7-24); CHLORIDE 118 mmol/L (98-107); CREATININE 0.57 mg/dL (0.55-1.02); POTASSIUM 4.2 mmol/L (3.5-5.1); SODIUM 146 mmol/L (136-145)
[2021-04-01 12:00] VITALS: BP 152/64
[2021-04-01 16:00] VITALS: BP 160/71
[2021-04-01 20:00] VITALS: BP 165/77
[2021-04-02] VITALS: BP 158/80; BP 176/96
[2021-04-02 08:00] VITALS: BP 151/82
[2021-04-02 11:39] LABS: BASO % 0.1 % (0.0-1.0); EOS % 0.2 % (1.0-4.0); HEMATOCRIT 39.4 % (37.0-47.0); LYMPH # 1.1 10*3/uL (1.3-4.4); LYMPH % 11.9 % (27.0-41.0); MEAN CORPUSCULAR HGB 31.5 pg (27.0-31.0); MEAN CORPUSCULAR HGB CONC 31.2 g/dl (33.0-37.0); MEAN PLATELET VOLUME 10.5 fl (9.6-12.3); MONO # 0.7 10*3/uL (0.1-1.0); MONO % 7.6 % (3.0-9.0); NEUT % 79.5 % (47.0-73.0); PLATELET COUNT AUTOMATED 214 10*3/uL (130-400); RED CELL DISTRI WIDTH 14.7 % (0-14.5); WHITE BLOOD COUNT 8.8 10*3/uL (4.8-10.8)
[2021-04-02] MEDS ORDERED: METHIMAZOLE5 M1 PO (11:45)
[2021-04-02] MEDS ORDERED: LEVOFLOXACIN500 MG PO (11:46)
[2021-04-02 11:55] LABS: ALBUMIN 1.9 gm/dl (3.1-4.5); ALKALINE PHOSPHATASE 74 U/L (45-117); BUN 16 mg/dl (7-24); CHLORIDE 115 mmol/L (98-107); CREATININE 0.59 mg/dL (0.55-1.02); POTASSIUM 4.5 mmol/L (3.5-5.1); SGOT/AST 22 IU/L (3-35); SGPT/ALT 28 U/L (12-78); SODIUM 142 mmol/L (136-145); TOTAL PROTEIN 6.6 gm/dL (6.4-8.2)
[2021-04-02 12:00] VITALS: BP 172/65
[2021-04-02 16:00] VITALS: BP 159/88
[2021-04-02 20:00] VITALS: BP 151/87
[2021-04-03] VITALS: BP 156/80
[2021-04-03 08:00] VITALS: BP 129/51; BP 151/80
[2021-04-03 12:00] VITALS: BP 164/94
[2021-04-03 16:00] VITALS: BP 154/95
[2021-04-03 20:00] VITALS: BP 153/80
[2021-04-04] VITALS: BP 140/73
[2021-04-04 06:59] LABS: BASO % 0.2 % (0.0-1.0); EOS % 0.3 % (1.0-4.0); HEMATOCRIT 39.7 % (37.0-47.0); LYMPH # 0.9 10*3/uL (1.3-4.4); LYMPH % 14.2 % (27.0-41.0); MEAN CELL VOLUME 99.5 fl (81.0-99.0); MEAN CORPUSCULAR HGB 31.1 pg (27.0-31.0); MEAN CORPUSCULAR HGB CONC 31.2 g/dl (33.0-37.0); MEAN PLATELET VOLUME 10.5 fl (9.6-12.3); MONO # 0.7 10*3/uL (0.1-1.0); MONO % 11.6 % (3.0-9.0); NEUT # 4.6 10*3/uL (2.3-7.9); NEUT % 72.4 % (47.0-73.0); PLATELET COUNT AUTOMATED 194 10*3/uL (130-400); RED BLOOD COUNT 3.99 10*6/uL (4.10-5.10); RED CELL DISTRI WIDTH 14.4 % (0-14.5); WHITE BLOOD COUNT 6.4 10*3/uL (4.8-10.8)
[2021-04-04 07:07] LABS: BUN 12 mg/dl (7-24); CHLORIDE 109 mmol/L (98-107); CREATININE 0.52 mg/dL (0.55-1.02); SODIUM 138 mmol/L (136-145)
[2021-04-04 08:00] VITALS: BP 153/85
[2021-04-04 12:00] VITALS: BP 149/70
[2021-04-04 16:00] VITALS: BP 134/85
[2021-04-04 18:00] VITALS: BP 130/78
== END 2021-04-04 19:53 | disposition home health service (06) | DRG 871 ==
LOC: ED 10:24 → EDHOLD 13:46 → ICCU 13:46 → 4E 03-31 13:45
PROVIDERS: Emergency Medicine; Internal Medicine Nephrology; Student in an Organized Health Care Education/Training Program; ADMIT Internal Medicine; ATTEND Internal Medicine
DX: A41.9 Sepsis, unspecified organism (principal); J18.9 Pneumonia, unspecified organism; G93.41 Metabolic encephalopathy; E43 Unspecified severe protein-calorie malnutrition; I48.20 Chronic atrial fibrillation, unspecified; I50.22 Chronic systolic (congestive) heart failure; I24.8 Other forms of acute ischemic heart disease; N39.0 Urinary tract infection, site not specified; E87.0 Hyperosmolality and hypernatremia; R65.20 Severe sepsis without septic shock; R62.7 Adult failure to thrive; Z90.710 Acquired absence of both cervix and uterus; J01.90 Acute sinusitis, unspecified; A80.9 Acute poliomyelitis, unspecified; Z20.822 Contact with and (suspected) exposure to COVID-19; F03.90 Unspecified dementia, unspecified severity, without behavioral disturbance, psychotic disturbance, mood disturbance, and anxiety; E11.9 Type 2 diabetes mellitus without complications; E05.90 Thyrotoxicosis, unspecified without thyrotoxic crisis or storm; E78.5 Hyperlipidemia, unspecified; I11.0 Hypertensive heart disease with heart failure; E55.9 Vitamin D deficiency, unspecified; E87.8 Other disorders of electrolyte and fluid balance, not elsewhere classified; B96.20 Unspecified Escherichia coli [E. coli] as the cause of diseases classified elsewhere; E53.8 Deficiency of other specified B group vitamins; Z68.22 Body mass index [BMI] 22.0-22.9, adult; Z86.73 Personal history of transient ischemic attack (TIA), and cerebral infarction without residual deficits; Z88.0 Allergy status to penicillin; Z88.8 Allergy status to other drugs, medicaments and biological substances; Z79.899 Other long term (current) drug therapy; Z90.49 Acquired absence of other specified parts of digestive tract

== ENCOUNTER → 2021-04-22 | Outpatient (CLI) | payer MEDICARE, BC ==
[~2021-04-22] MED LIST changes: +ELIQUIS5 M1 PO; +LEVOFLOXACIN500 MG PO
== END | disposition home or self-care (01) ==
LOC: RAD/SH 12:22
PROVIDERS: ATTEND Internal Medicine
DX: R13.19 Other dysphagia (principal)

== ENCOUNTER 2021-05-12 10:28 | Emergency (ER) | payer MEDICARE, BC ==
[~2021-05-12] VITALS: Wt 54.0 kg
[2021-05-12 10:28] VITALS: BP 0/0
== END 2021-05-12 14:00 ==
LOC: ED 10:28
DX: I46.9 Cardiac arrest, cause unspecified (principal); E11.9 Type 2 diabetes mellitus without complications; E78.5 Hyperlipidemia, unspecified; I48.91 Unspecified atrial fibrillation; I11.0 Hypertensive heart disease with heart failure; I50.9 Heart failure, unspecified; Z79.899 Other long term (current) drug therapy; Z88.0 Allergy status to penicillin; Z88.8 Allergy status to other drugs, medicaments and biological substances